=== PATIENT | female | born 1965 | race Caucasian/White ===

== ENCOUNTER 2022-10-17 13:27 | Emergency (ER) | payer OTHER, SELFPAY ==
[2022-10-17 13:28] VITALS: BP 165/91; PULSE 82; RESP 18; TEMP 36.7; O2SAT 100; BMI 25.8
--- NOTE | 2022-10-17 15:40 | EDS_ITS ---
HPI History of Present Illness Chief Complaint: Head Injury Informant: patient Onset/Context/Timing Onset: Yesterday Narrative Narrative: Patient presents secondary to closed head injury. She was getting into a truck yesterday when she hit the top of her head on the roof of the truck. She has small hematoma and headache. She states she does want to keep her eyes closed and sleep. She has had some nausea. She is been taking Tylenol without improvement. She takes a baby aspirin daily but no other form of anticoagulant. She denies neck pain. [facility] Medical History (Updated 10/17/22 @ 16:[address] Uzma Diaz MD) Anxiety Depression Diabetes High cholesterol Hypertension Home Medications aspirin 81 mg tablet,delayed release (Adult Low Dose Aspirin) 81 mg PO DAILY 10/17/22 [History Last Taken Unknown] atorvastatin 10 mg tablet 10 mg PO DAILY 10/17/22 [History Last Taken Unknown] buprenorphine HCl 150 mcg buccal film 150 mcg buccal Q12H 10/17/22 [History Last Taken Unknown] buspirone 15 mg tablet 15 mg PO BID 10/17/22 [History Last Taken Unknown] empagliflozin 25 mg tablet 25 mg PO DAILY 10/17/22 [History Last Taken Unknown] glimepiride 4 mg tablet (Amaryl) 4 mg PO DAILY 10/17/22 [History Last Taken Unknown] lamotrigine 200 mg tablet (Lamictal) 200 mg PO DAILY 10/17/22 [History Last Taken Unknown] lisinopril 10 mg tablet 10 mg PO DAILY 10/17/22 [History Last Taken Unknown] melatonin 3 mg tablet,extended release (Meladox) mg PO 10/17/22 [History Last Taken Unknown] meloxicam 15 mg tablet 15 mg PO DAILY 10/17/22 [History Last Taken Unknown] metFORMIN 1,500 mg PO .hs 10/17/22 [History Last Taken Unknown] metformin 500 mg 24 hr tablet,extended release (Glumetza) 1,000 mg PO DAILY 10/17/22 [History Last Taken Unknown] pioglitazone 30 mg tablet (Actos) 30 mg PO DAILY 10/17/22 [History Last Taken Unknown] prazosin 1 mg capsule (Minipress) 1 mg PO QHS 10/17/22 [History Last Taken Unknown] promethazine 25 mg tablet 25 mg PO TID PRN nausea and vomiting #14 tabs 10/17/22 [Rx Last Taken Unknown] sertraline 150 mg capsule 150 mg PO DAILY 10/17/22 [History Last Taken Unknown] Allergy/AdvReac Type Severity Reaction Status Date / Time haloperidol [From Haldol] Allergy Severe Hives Verified 10/17/22 13:30 clindamycin Allergy Intermediate Hives Verified 10/17/22 15:49 ondansetron [From Zofran] Allergy Intermediate Hives Verified 10/17/22 15:49 Social History Smoking Status: Current every day smoker tobacco type: cigarettes ROS ROS ED Constitutional Constitutional ED: Denies chills or fever(s) Eyes Eyes: Reports other Details: Difficulty keeping eyes open but no change in vision. ; Denies change in vision or discharge from eye(s) ENT ENT ED: Denies discharge from eye(s), rhinorrhea or sore throat Cardiovascular Cardiovascular: Denies chest pain or palpitations Respiratory/Chest Respiratory/Chest: Denies cough or dyspnea Gastrointestinal Gastrointestinal: Reports nausea and vomiting; Denies abdominal pain or diarrhea Genitourinary Genitourinary ED: Denies difficulty urinating or dysuria Musculoskeletal Musculoskeletal: Denies back pain or extremity pain Integumentary Denies Abrasions or rash Neurologic Neurologic: Reports headache(s); Denies weakness Allergic/Immunologic Allergic/Immunologic ED: Denies lip swelling or urticaria EXAM Physical Exam Const Vital Signs: 10/17/22 13:28 10/17/22 15:35 10/17/22 15:35 Temperature 98.1 F Temperature Source Temporal Pulse Rate 82 Respiratory Rate 18 Respiratory Effort Normal Respiratory Pattern Normal Blood Pressure 165/91 H Blood Pressure Mean 115 Pulse Ox 100 Oxygen Delivery Method Room Air Positive well nourished and well developed General Appearance ED: well developed HEENT Reports normocephalic and head/scalp atraumatic Eyes PERRL and EOMs intact bilaterally Neck supple Chest Wall inspection of chest normal and palpation of chest normal Resp normal respiratory effort and clear to auscultation bilaterally Cardio regular rate and regular rhythm GI normal to inspection, nondistended, normoactive bowel sounds Palpation: soft Back/Spine no CVA tenderness Back/Spine Narrative: No midline cervical tenderness. Extremity normal to inspection Neuro oriented x3 and no sensory deficits noted Sensorium / Orientation: alert Motor Exam: strength 5/5 throughout Psych mental status grossly normal Skin no rashes or lesions noted MDM MDM MDM Narrative Medical decision making narrative: CT scan of the head obtained to evaluate for intracranial injury/bleed. Radiography Diagnostic Testing: Clinical Impression(s) from Imaging Studies Brain CT 10/17/22 15:40 IMPRESSION: Negative head/brain CT without intravenous contrast. Electronically Signed: Florentino Hedrick MD at 16:37 EDT , Treatment and Re-Evaluation Narrative: CT scan of the head reveals no acute abnormalities. Patient given ibuprofen here. She has an allergy to Zofran and therefore is not given nausea meds since she is driving home. 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 She will continue to take Tylenol and ibuprofen at home as needed. She will be given instructions for concussion and return instructions were provided. Discharge Plan Triage Chief Complaint: Head Injury ED Provider: Uzma Diaz Dx/Rx/DC Orders Clinical Impression: Concussion, CHI (closed head injury) Instructions: ED Concussion, ED Head Injury (Adult) Prescriptions: New promethazine 25 mg tablet 25 mg PO TID PRN (Reason: nausea and vomiting) Qty: 14 0RF No Action aspirin [Adult Low Dose Aspirin] 81 mg tablet,delayed release (DR/EC) 81 mg PO DAILY atorvastatin 10 mg tablet 10 mg PO DAILY buprenorphine HCl 150 mcg film 150 mcg buccal Q12H buspirone 15 mg tablet 15 mg PO BID empagliflozin 25 mg tablet 25 mg PO DAILY glimepiride [Amaryl] 4 mg tablet 4 mg PO DAILY lamotrigine [Lamictal] 200 mg tablet 200 mg PO DAILY lisinopril 10 mg tablet 10 mg PO DAILY melatonin [Meladox] 3 mg tablet extended release PO meloxicam 15 mg tablet 15 mg PO DAILY metformin [Glumetza] 500 mg tablet,ER arnold.retention 24 hr 1,000 mg PO DAILY metFORMIN 1,500 mg PO .hs pioglitazone [Actos] 30 mg tablet 30 mg PO DAILY prazosin [Minipress] 1 mg capsule 1 mg PO QHS sertraline 150 mg capsule 150 mg PO DAILY Primary Care Provider: AMBAR MARKS NP Referrals: AMBAR MARKS NP [Other] - 1-2 Weeks Disposition Disposition: Home, Self Care
--- NOTE | 2022-10-17 15:40 | CT_ITS ---
EXAM: CT HEAD WITHOUT INTRAVENOUS CONTRAST CLINICAL INDICATION: CHI TECHNIQUE: Multiple axial images were obtained of the head without intravenous contrast. This CT exam was performed using one or more of the following dose reduction techniques: automated exposure control, adjustment of the mA and/or kV according to patient size, and/or use of iterative reconstruction technique. COMPARISON: No relevant prior studies available. FINDINGS: BRAIN AND EXTRA-AXIAL SPACES: Unremarkable. No intra- or extra-axial hemorrhage. No evidence of acute infarct. No intracranial mass or mass effect. There is preservation of the tabares/white matter interface. Posterior fossa structures are unremarkable. Ventricles are appropriate for age. No hydrocephalus. Basal cisterns are patent. BONES/JOINTS: Unremarkable. No discrete lytic or blastic abnormalities. SINUSES: Unremarkable as visualized. Clear. MASTOID AIR CELLS: Unremarkable. Clear. ORBITS: Visualized globes, extraocular muscles, optic nerves and retrobulbar fat appear unremarkable. CT/Brain/Head without Contrast IMPRESSION: Negative head/brain CT without intravenous contrast. Electronically Signed: Florentino Hedrick MD at 16:37 EDT ,
[2022-10-17] MEDS: Ibuprofen 600 MG Tablet PO (16:51)
== END 2022-10-17 16:54 | disposition home or self-care (01) ==
PROVIDERS: Emergency Provider Emergency Medicine; Visit Provider Emergency Medicine
DX: S06.0X0A Concussion without loss of consciousness, initial encounter (principal); E11.9 Type 2 diabetes mellitus without complications; E78.00 Pure hypercholesterolemia, unspecified; F17.210 Nicotine dependence, cigarettes, uncomplicated; I10 Essential (primary) hypertension; F32.A Depression, unspecified; F41.9 Anxiety disorder, unspecified; Z79.82 Long term (current) use of aspirin; Z79.899 Other long term (current) drug therapy; Z79.84 Long term (current) use of oral hypoglycemic drugs; X58.XXXA Exposure to other specified factors, initial encounter
CPT/HCPCS: 70450; 99283

== ENCOUNTER → 2022-11-03 | Outpatient (CLI) | payer OTHER, SELFPAY ==
--- NOTE | 2022-11-03 15:30 | BI_ITS ---
MAMMOGRAPHY - BILATERAL SCREENING REASON FOR EXAM: Female, 57 years old. Routine annual screening examination. PERTINENT HISTORY: Non-contributory. TECHNIQUE: Digital bilateral breast dinh (3D mammographic acquisition) in the CC and MLO projections. 2-D mediolateral oblique (MLO) and craniocaudad (CC) views of both breasts were obtained. CAD: Full Field Digital Mammography with Computer Added Detection was performed. COMPARISON: Comparison is made with prior outside examination dated November 02, 2020. FINDINGS: Breast Composition: The breasts are heterogeneously dense, which may obscure small masses. There are no dominant masses or suspicious calcifications. No other significant abnormalities are identified. There has been no significant change since the prior study. BI/SCRN MAMM (CAD)W/DINH BILAT IMPRESSION: Stable bilateral screening mammogram. Yearly follow-up mammogram recommended. (A) ASSESSMENT CATEGORY: BIRADS Category 1: Negative. A letter regarding these results will be sent to the patient by the facility within 30 days. Approximately 10% of breast cancers are not detected by mammography. A normal mammogram should not delay biopsy of a clinically suspicious abnormality. [id number] Electronically Signed: Yosvany Call MD at 9:53 EDT ,
== END | disposition home or self-care (01) ==
DX: Z12.31 Encounter for screening mammogram for malignant neoplasm of breast (principal)
CPT/HCPCS: 77063; 77067

== ENCOUNTER 2023-02-02 12:46 | Observation (INO) | payer OTHER, SELFPAY ==
[2023-02-02 12:47] VITALS: BP 127/78; PULSE 87; RESP 16; TEMP 35.9; O2SAT 100; BMI 26.2
--- NOTE | 2023-02-02 13:05 | ED.VIS.GI ---
HPI HPI - GI History of Present Illness Chief Complaint: Flank Pain Informant: patient Narrative Narrative: Patient presenting with right flank pain that feels like prior kidney stones, pain has been there for about a month. Yesterday the pain got worse she went to [place] and had a CT showing a 6 mm stone somewhere on the right side, she does not have the report or the imaging with her. She states her pain is out of control. She was prescribed ibuprofen and an antibiotic. She is not having hematuria, dysuria, fevers, chills, she is nauseated and vomiting. She is on Suboxone because of being on hydrocodone for a long time due to chronic low back issues, she states this was all a result of care provided at the [facility], she is referred there to see urology which she has not done yet, she came here because the pain is out of control. No prior surgeries for kidney stones. [facility] Medical History (Updated 02/02/23 @ 15:[address] Brandyn Adams MD) Anxiety Depression Diabetes High cholesterol Hypertension Kidney stones PTSD (post-traumatic stress disorder) Home Medications aspirin 81 mg tablet,delayed release (Adult Low Dose Aspirin) 81 mg PO DAILY 10/17/22 [History Last Taken Unknown] atorvastatin 10 mg tablet 10 mg PO DAILY 10/17/22 [History Last Taken Unknown] buprenorphine HCl 150 mcg buccal film 150 mcg buccal Q12H 10/17/22 [History Last Taken Unknown] buspirone 15 mg tablet 15 mg PO BID 10/17/22 [History Last Taken Unknown] empagliflozin 25 mg tablet 25 mg PO DAILY 10/17/22 [History Last Taken Unknown] glimepiride 4 mg tablet (Amaryl) 4 mg PO DAILY 10/17/22 [History Last Taken Unknown] lamotrigine 200 mg tablet (Lamictal) 200 mg PO DAILY 10/17/22 [History Last Taken Unknown] lisinopril 10 mg tablet 10 mg PO DAILY 10/17/22 [History Last Taken Unknown] melatonin 3 mg tablet,extended release (Meladox) mg PO 10/17/22 [History Last Taken Unknown] meloxicam 15 mg tablet 15 mg PO DAILY 10/17/22 [History Last Taken Unknown] metFORMIN 1,500 mg PO .hs 10/17/22 [History Last Taken Unknown] metformin 500 mg 24 hr tablet,extended release (gastric retention) (Glumetza) 1,000 mg PO DAILY 10/17/22 [History Last Taken Unknown] pioglitazone 30 mg tablet (Actos) 30 mg PO DAILY 10/17/22 [History Last Taken Unknown] prazosin 1 mg capsule (Minipress) 1 mg PO QHS 10/17/22 [History Last Taken Unknown] promethazine 25 mg tablet 25 mg PO TID PRN nausea and vomiting #14 tabs 10/17/22 [Rx Last Taken Unknown] sertraline 150 mg capsule 150 mg PO DAILY 10/17/22 [History Last Taken Unknown] Allergy/AdvReac Type Severity Reaction Status Date / Time haloperidol [From Haldol] Allergy Severe Hives Verified 10/17/22 13:30 clindamycin Allergy Intermediate Hives Verified 10/17/22 15:49 ondansetron [From Zofran] Allergy Intermediate Hives Verified 10/17/22 15:49 Social History household members: none housing: house Smoking Status: Current every day smoker tobacco type: cigarettes ROS ROS ED Constitutional Constitutional ED: Denies chills or fever(s) Eyes Eyes: Denies change in vision or diplopia ENT ENT ED: Denies rhinorrhea or sore throat Cardiovascular Cardiovascular: Denies chest pain or palpitations Respiratory/Chest Respiratory/Chest: Denies cough or dyspnea Gastrointestinal Gastrointestinal: Reports abdominal pain, nausea and vomiting; Denies diarrhea Genitourinary Genitourinary ED: Reports flank pain; Denies dysuria or hematuria Musculoskeletal Musculoskeletal: Reports back pain; Denies neck pain Integumentary Denies abscess or rash Neurologic Neurologic: Denies headache(s), paresthesias or weakness Psychiatric Psychiatric: Denies anxiety or suicidal thoughts EXAM Physical Exam Const Vital Signs: 02/02/23 12:47 Temperature 96.7 F L Temperature Source Temporal Pulse Rate 87 Respiratory Rate 16 Blood Pressure 127/78 H Blood Pressure Mean 94 Pulse Ox 100 Oxygen Delivery Method Room Air Positive well nourished and well developed Constitutional Narrative: In mild acute painful distress General Appearance ED: well developed HEENT Reports moist mucous membranes normocephalic and atraumatic Eyes PERRL and EOMs intact bilaterally Neck full ROM and supple Resp normal respiratory effort and clear to auscultation bilaterally Effort and Inspection: Negative for respiratory distress Cardio regular rate, regular rhythm and no murmurs GI non-distended GI Narrative: Mild tenderness throughout right abdomen no guarding or rebound Auscultation: normoactive bowel sounds Palpation: soft Back/Spine General Back: CVA tenderness right and other FROM Extremity normal to inspection General Extremety ED: Negative for edema, pulses abnormal or tenderness General Extremity: Negative for edema or pulses abnormal Neuro oriented x3, CN's II-XII intact bilaterally and no sensory deficits noted Sensorium / Orientation: awake and alert Motor Exam: strength 5/5 throughout Psych Attitude: agitated Mood & Affect: anxious Skin no rashes or lesions noted and no wounds MDM MDM MDM Narrative Medical decision making narrative: Labs obtained show creatinine 1.37 I do not have an old measurement for her to see a baseline. Her urinalysis shows no sign of infection right now, but she has been on an antibiotic recently. Blood counts are noted and good, she is feeling better after morphine. Discussed with urology for possible stenting; Dr. Anglin agrees and will admit her to the floor for further management. History & Record Review Additional record(s) reviewed:: Prior outpatient record (CT imaging without results sent digitally from outpatient hospital yesterday, on my interpretation proximal right ureteral 6 mm stone with hydronephrosis.) Lab Data Attestation: I reviewed the patient's lab results. Labs: Laboratory Results - last 24 hr 02/02/23 13:10 WBC 9.7 RBC 4.54 Hgb 12.6 Hct 39.4 MCV 86.8 MCH 27.8 MCHC 32.0 RDW Std Deviation 55.2 H RDW Coeff of Gabi 17.2 H Plt Count 293 MPV 9.3 Immature Gran % (Auto) 0.400 Neut % (Auto) 56.2 Lymph % (Auto) 32.3 Rab[place] % (Auto) 7.5 Eos % (Auto) 3.1 Baso % (Auto) 0.5 Absolute Neuts (auto) 5.4 Absolute Lymphs (auto) 3.12 Nucleated RBC % 0 Sodium 134 L Potassium 4.0 Chloride 102 Carbon Dioxide 25.0 Anion Gap 7 BUN 18 Creatinine 1.37 H Estim Creat Clear Calc 45.12 Est GFR (MDRD) Af Amer 51 L Est GFR (MDRD) Non-Af 43 L BUN/Creatinine Ratio 13.1 Glucose 204 H Calcium 9.3 Urine Color Yellow Urine Clarity Clear Urine pH 6.0 Ur Specific [place] 1.015 Urine Protein 15 H Urine Glucose (UA) 1000 H Urine Ketones Negative Urine Occult Blood 25 H Urine Nitrite Negative Urine Bilirubin Negative Urine Urobilinogen Normal Ur Leukocyte Esterase 25 H Urine RBC 0-5 SEEN Urine WBC 0-5 SEEN Ur Squamous Epith Cells 0-5 SEEN Urine Bacteria 0 SEEN Urine Mucus 0 SEEN Management Discussion w/another healthcare provider: [employer] (Urology [facility]) Discharge Plan Triage Chief Complaint: Flank Pain ED Provider: Brandyn Adams Dx/Rx/DC Orders Clinical Impression: Intractable pain, Ureterolithiasis, Renal colic on right side Prescriptions: No Action aspirin [Adult Low Dose Aspirin] 81 mg tablet,delayed release (DR/EC) 81 mg PO DAILY atorvastatin 10 mg tablet 10 mg PO DAILY buprenorphine HCl 150 mcg film 150 mcg buccal Q12H buspirone 15 mg tablet 15 mg PO BID empagliflozin 25 mg tablet 25 mg PO DAILY glimepiride [Amaryl] 4 mg tablet 4 mg PO DAILY lamotrigine [Lamictal] 200 mg tablet 200 mg PO DAILY lisinopril 10 mg tablet 10 mg PO DAILY melatonin [Meladox] 3 mg tablet extended release PO meloxicam 15 mg tablet 15 mg PO DAILY metformin [Glumetza] 500 mg tablet,ER arnold.retention 24 hr 1,000 mg PO DAILY metFORMIN 1,500 mg PO .hs pioglitazone [Actos] 30 mg tablet 30 mg PO DAILY prazosin [Minipress] 1 mg capsule 1 mg PO QHS sertraline 150 mg capsule 150 mg PO DAILY promethazine 25 mg tablet 25 mg PO TID PRN (Reason: nausea and vomiting) Qty: 14 0RF Primary Care Provider: [facility] [Primary [facility] Provider] - Disposition Disposition: Acute Care Hospital [facility]
[2023-02-02] MEDS: Metoclopramide 10 MG/2 ML Vial 5 MG IV (13:11)
[2023-02-02] MEDS: Morphine 4 MG/ML Syringe IV ×2 (13:11→18:40)
[2023-02-02 13:17] LABS: Bacteria 0 SEEN /hpf (None Seen); Mucous, Urine 0 SEEN /hpf (<or=2+)
[2023-02-02 13:23] LABS: Absolute Lymphocyte Count 3.12 X10^3/uL (0.83-4.51); Absolute Neutrophil Count 5.4 X10^3/uL (2.0-7.7); Basophil# 0.05 X10^3/uL; Basophil% 0.5 % (0-1); Eosinophils% 3.1 % (0-5); Hematocrit 39.4 % (37-47); Hemoglobin 12.6 g/dL (12.0-15.0); Lymphocyte # 3.12 X10^3/ul (0.83-4.51); Lymphocyte % 32.3 % (19-41); Mean Corpuscular Hgb 27.8 pg (27.0-32.0); Mean Corpuscular Volume 86.8 fL (81-99); Mean Platelet Vol. 9.3 fl (6.2-12.0); Monocyte# 0.73 X10^3/uL; Monocyte% 7.5 % (0-10); NRBC Flagged by Analyzer 0 % (0-5); Neutrophil # 5.43 X10^3/uL (2.7-7.7); Neutrophil % 56.2 % (47-70); Platelet Count 293 K/mm3 (150-450); RBC Distribution Width CV 17.2 % (11.6-14.6); RBC Distribution Width SD 55.2 fl (35.1-43.9); Red Blood Count 4.54 M/mm3 (4.2-5.4); White Blood Count 9.7 K/mm3 (4.4-11.0)
[2023-02-02 13:24] LABS: Color, Urine Yellow (Yellow); Glucose, Dipstick 1000 mg/dl (Normal); Ketone-Dipstick Negative (Negative); Leukocyte Esterase-Dipstick 25 /ul (Negative); Nitrite-Dipstick Negative (Negative); Occult Blood-Urine 25 /ul (Negative); Protein-Dipstick 15 mg/dl (Negative); Specific Gravity, Urine 1.015 (1.002-1.030); Urine Bilirubin Dipstick Negative (Negative); Urine Clarity Clear (Clear); Urine Urobilinogen Normal (Normal)
[2023-02-02 13:35] LABS: Red Blood Cells-Urine 0-5 SEEN /hpf (0-5); Squamous Epithelial Cells - UA 0-5 SEEN /hpf (5-10); White Blood Cells 0-5 SEEN /hpf (0-5)
[2023-02-02 13:50] LABS: Anion Gap 7 (5-15); BUN 18 mg/dL (7-18); BUN/Creat Ratio 13.1 RATIO (10-20); Calcium,Total 9.3 mg/dL (8.5-10.1); Chloride 102 mmol/L (98-107); Creatinine, Serum 1.37 mg/dL (0.55-1.02); EST Glomerular Filtration Rate 43 mL/min (>60); Est Glom Filt Rate - Afr Amer 51 mL/min (>60); Estimated Creatinine Clearance 45.12 ml/min; Glucose 204 mg/dL (74-106); Sodium Level 134 mmol/L (136-145)
--- NOTE | 2023-02-02 15:41 | NURSING ---
MED SURG BRETT INTRACTABLE KIDNEY STONE PAIN RT FLANK
[2023-02-02 17:00] VITALS: RESP 14; O2SAT 94
--- NOTE | 2023-02-02 17:39 | ED.RN ---
Pt observed ambulating back in to facility with IV holding bag of fluids. This RN advised pt she had to remain in ED unit as long as she had an IV. Pt states she was told by she could walk out to her car with IV infusing. This RN apologized for confusion but stated for safety reasons pt could not ambulate out into parking lot with IV fluids infusing. This RN tod pt if she needed to go outside, IV would need to be removed, pt voiced understanding. Per HALAL BUTCHER this was second time pt had left department with IV infusing, HALAL BUTCHER states pt had been reminded earlier that she could not go outside with IV infusing.
[2023-02-02] MEDS: 0.9% Normal Saline (1000mL) 1,000 ML 75 ML IV ×2 (18:55→20:09)
[2023-02-02 19:09] VITALS: BP 119/73; PULSE 74; RESP 14; O2SAT 95
[2023-02-02 19:48] VITALS: BMI 26.4
[2023-02-02 19:54] VITALS: BP 111/63; PULSE 61; RESP 18; TEMP 36.8; O2SAT 98
[2023-02-02] MEDS: Ketorolac 15 MG/ML Vial IV (20:13)
[2023-02-02 20:34] VITALS: BMI 26.4
[2023-02-02] MEDS: Nicotine Polacrilex 2 MG GUM PO (20:53)
[2023-02-03] VITALS (7 sets, daily range): BP systolic 103–161; BP diastolic 63–83; PULSE 55–86; RESP 14–16; TEMP 36.1–37.2; O2SAT 95–100
[2023-02-03] MEDS: Morphine 2 MG/ML Syringe IV ×2 (01:11→16:44)
[2023-02-03] MEDS: 0.9% Saline Lock 10 ML Syringe IV ×5 (01:11→16:52)
[2023-02-03] MEDS: Metoclopramide 10 MG/2 ML Vial 5 MG IV ×2 (03:12→16:52)
[2023-02-03 05:14] LABS: Absolute Lymphocyte Count 3.31 X10^3/uL (0.83-4.51); Absolute Neutrophil Count 3.9 X10^3/uL (2.0-7.7); Basophil# 0.06 X10^3/uL; Basophil% 0.7 % (0-1); Eosinophils% 3.6 % (0-5); Hematocrit 37.1 % (37-47); Hemoglobin 11.8 g/dL (12.0-15.0); Lymphocyte # 3.31 X10^3/ul (0.83-4.51); Lymphocyte % 40.1 % (19-41); Mean Corp Hgb Conc 31.8 g/dL (32-36); Mean Corpuscular Hgb 28.1 pg (27.0-32.0); Mean Corpuscular Volume 88.3 fL (81-99); Mean Platelet Vol. 9.3 fl (6.2-12.0); Monocyte# 0.64 X10^3/uL; Monocyte% 7.7 % (0-10); NRBC Flagged by Analyzer 0 % (0-5); Neutrophil # 3.93 X10^3/uL (2.7-7.7); Neutrophil % 47.7 % (47-70); Platelet Count 248 K/mm3 (150-450); RBC Distribution Width CV 17.2 % (11.6-14.6); RBC Distribution Width SD 56.5 fl (35.1-43.9); White Blood Count 8.3 K/mm3 (4.4-11.0)
[2023-02-03 05:40] LABS: Anion Gap 5 (5-15); BUN 18 mg/dL (7-18); BUN/Creat Ratio 15.7 RATIO (10-20); Calcium,Total 8.3 mg/dL (8.5-10.1); Chloride 107 mmol/L (98-107); Creatinine, Serum 1.15 mg/dL (0.55-1.02); EST Glomerular Filtration Rate 52 mL/min (>60); Est Glom Filt Rate - Afr Amer 63 mL/min (>60); Estimated Creatinine Clearance 53.75 ml/min; Glucose 145 mg/dL (74-106); Potassium 4.2 mmol/L (3.5-5.1); Sodium Level 139 mmol/L (136-145)
--- NOTE | 2023-02-03 05:45 | RAD_ITS ---
STUDY: X-RAY - ABDOMEN/PELVIS REASON FOR EXAM: Female, 57 years old patient with kidney stone. TECHNIQUE: Two AP supine views of the abdomen and pelvis. COMPARISON: Prior comparison studies are not available for review at this time. FINDINGS: Normal visualized lung bases. There is an unremarkable bowel gas pattern. There is no obvious organomegaly, mass, dilated bowel or pathologic calcifications. Normal soft tissue structures. There is narrowing of the L5-S1 disc space with endplate osteophytes. RAD/Abdomen Single View (Portable) IMPRESSION: No radiographic evidence of acute intra-abdominal disease. Electronically Signed: Aretha Pires MD at 7:01 EST ,
[2023-02-03] MEDS: Ketorolac 15 MG/ML Vial IV (09:09)
[2023-02-03] MEDS: 0.9% Normal Saline (1000mL) 1,000 ML 75 ML IV (09:09)
[2023-02-03] MEDS: Nicotine Polacrilex 2 MG GUM PO ×3 (09:20→16:45)
[2023-02-03 09:40] LABS: Bedside Glucose 179 mg/dL (74-106)
--- NOTE | 2023-02-03 14:36 | PCM.HP.STD ---
HPI - General General Date of Admission: 02/02/23 Date of Service: 02/03/23 Chief Complaint: Right ureteral calculi HPI Narrative SONNY AMBROSE, is a 57 F who presents to the hospital with severe right flank pain she was admitted for pain control today take her to surgery for right ESWL hopefully we will have to put a stent on the right side. And should be discharged after the treatment of her stone [facility] Medical History (Updated 02/02/23 @ 20:41 by Sachi Rodríguez) Anxiety Back pain due to injury Chest pain Depression Diabetes High cholesterol High cholesterol History of stress test Hypertension Kidney stones Post-menopausal PTSD (post-traumatic stress disorder) Syncope Home Medications aspirin 81 mg tablet,delayed release (Adult Low Dose Aspirin) 81 mg PO DAILY 10/17/22 [History Last Taken Unknown] buspirone 15 mg tablet 15 mg PO TID 10/17/22 [History Last Taken Unknown] empagliflozin 25 mg tablet 25 mg PO DAILY 10/17/22 [History Last Taken Unknown] lamotrigine 200 mg tablet (Lamictal) 200 mg PO DAILY 10/17/22 [History Last Taken Unknown] melatonin 3 mg tablet,extended release (Meladox) 3 mg PO BID 10/17/22 [History Last Taken Unknown] meloxicam 15 mg tablet 15 mg PO DAILY 10/17/22 [History Last Taken Unknown] promethazine 25 mg tablet 25 mg PO TID PRN nausea and vomiting #14 tabs 10/17/22 [Rx Last Taken Unknown] atorvastatin 20 mg tablet 20 mg PO DAILY 02/02/23 [History Last Taken Unknown] buprenorphine HCl 75 mcg buccal film 75 mcg buccal Q12H 02/02/23 [History Last Taken Unknown] lisinopril 20 mg tablet 20 mg PO DAILY 02/02/23 [History Last Taken Unknown] metformin 500 mg tablet 500 mg PO BID 02/02/23 [History Last Taken Unknown] pioglitazone 45 mg tablet 45 mg PO DAILY 02/02/23 [History Last Taken Unknown] sertraline 50 mg tablet 50 mg PO TID 02/02/23 [History Last Taken Unknown] Allergy/AdvReac Type Severity Reaction Status Date / Time haloperidol [From Haldol] Allergy Severe Hives Verified 10/17/22 13:30 clindamycin Allergy Intermediate Hives Verified 10/17/22 15:49 ondansetron [From Zofran] Allergy Intermediate Hives Verified 10/17/22 15:49 Social History household members: none housing: house Smoking Status: Current every day smoker tobacco type: cigarettes Vital Signs Vital Signs Vital Signs: 02/02/23 17:00 02/02/23 19:09 02/02/23 19:09 Temperature Temperature Source Pulse Rate 74 74 Pulse Strength Respiratory Rate 14 14 14 Respiratory Effort Blood Pressure 119/73 119/73 Blood Pressure Mean 88 88 Blood Pressure Source Blood Pressure Position Blood Pressure Location Pulse Ox 94 95 95 Oxygen Delivery Method Room Air Room Air 02/02/23 19:54 02/03/23 03:17 02/03/23 09:00 Temperature 98.3 F 98.4 F Temperature Source Oral Oral Pulse Rate 61 55 L Pulse Strength Respiratory Rate 18 16 Respiratory Effort Normal Blood Pressure 111/63 132/63 H Blood Pressure Mean 79 86 Blood Pressure Source Monitor Monitor Blood Pressure Position Semi-Fowlers Semi-Fowlers Blood Pressure Location Left Arm Right Arm Pulse Ox 98 100 Oxygen Delivery Method Room Air Room Air Room Air 02/03/23 09:20 02/03/23 09:20 Temperature 99.0 F Temperature Source Oral Pulse Rate 64 Pulse Strength Normal (2+) Respiratory Rate 14 Respiratory Effort Blood Pressure 126/66 H Blood Pressure Mean 86 Blood Pressure Source Monitor Blood Pressure Position Semi-Fowlers Blood Pressure Location Left Arm Pulse Ox 100 Oxygen Delivery Method Room Air Weight Weight: 76.385 kg Body Mass Index (BMI) 26.4 Results Lab / Micro Data 02/03/23 04:45 02/03/23 04:45 Labs: Laboratory Results - last 24 hr 02/03/23 04:45: WBC 8.3, RBC 4.20, Hgb 11.8 L, Hct 37.1, MCV 88.3, MCH 28.1, MCHC 31.8 L, RDW Std Deviation 56.5 H, RDW Coeff of Gabi 17.2 H, Plt Count 248, MPV 9.3, Immature Gran % (Auto) 0.200, Neut % (Auto) 47.7, Lymph % (Auto) 40.1, [place] % (Auto) 7.7, Eos % (Auto) 3.6, Baso % (Auto) 0.7, Absolute Neuts (auto) 3.9, Absolute Lymphs (auto) 3.31, Nucleated RBC % 0, Sodium 139, Potassium 4.2, Chloride 107, Carbon Dioxide 27.0, Anion Gap 5, BUN 18, Creatinine 1.15 H, Estim Creat Clear Calc 53.75, Est GFR (MDRD) Af Amer 63, Est GFR (MDRD) Non-Af 52 L, BUN/Creatinine Ratio 15.7, Glucose 145 H, Hemoglobin A1c 9.0 H, Calcium 8.3 L 02/03/23 09:15: POC Glucose 179 H Imagaing Radiology Impression KUB X-Ray 02/03/23 05:45 IMPRESSION: No radiographic evidence of acute intra-abdominal disease. Electronically Signed: Aretha Pires MD at 7:01 EST ,
--- NOTE | 2023-02-03 14:40 | PCM.DC ---
Discharge Instructions Diet Discharge Diet: No restrictions Activity Discharge Activity: Return to Normal Activity and May Not Drive (while taking narcotic pain medications.) Dressing / Incision Call your doctor if you observe: Fever of 101 or Higher Follow Up Care Please Follow Up With: David Anglin MD When: Call [phone] for an appointment Test Results: Test results from this visit will be discussed in further detail at your follow-up appointment, if applicable. Discharge Plan Admission Admit Date/Time: 02/02/23 16:03 Primary Reason for Your Visit: right kidney stone Attending Provider: David Anglin Primary Care Provider: [facility] Discharge Orders/Prescriptions Prescriptions: New ketorolac 10 mg tablet 10 mg PO Q6H PRN (Reason: pain) 5 Days Qty: 10 0RF tamsulosin 0.4 mg capsule 0.4 mg PO DAILY Qty: 30 0RF docusate sodium [Colace] 100 mg capsule 100 mg PO BID Qty: 20 0RF Continued aspirin [Adult Low Dose Aspirin] 81 mg tablet,delayed release (DR/EC) 81 mg PO DAILY Patient Comments: Patient states that she does not take it every day buspirone 15 mg tablet 15 mg PO TID empagliflozin 25 mg tablet 25 mg PO DAILY Rx Instructions: take 1/2 tablet 12.5 once a day lamotrigine [Lamictal] 200 mg tablet 200 mg PO DAILY melatonin [Meladox] 3 mg tablet extended release 3 mg PO BID meloxicam 15 mg tablet 15 mg PO DAILY promethazine 25 mg tablet 25 mg PO TID PRN (Reason: nausea and vomiting) Qty: 14 0RF atorvastatin 20 mg tablet 20 mg PO DAILY buprenorphine HCl 75 mcg film 75 mcg buccal Q12H lisinopril 20 mg tablet 20 mg PO DAILY metformin 500 mg tablet 500 mg PO BID pioglitazone 45 mg tablet 45 mg PO DAILY sertraline 50 mg tablet 50 mg PO TID Patient Comments: TAKE 3 TABLETS BY MOUTH ONCE DAILY Referrals / Follow [facility]: [facility] [Primary Care Provider] - Disposition Discharge Orders: Discharge Patient (Routine); Ordered 02/03/23 Ordered By: Dr. David Anglin
[2023-02-03 14:43] LABS: Bedside Glucose 134 mg/dL (74-106)
[2023-02-03] MEDS: Cefazolin 2 GM in 0.9% Normal Saline (100mL Bag) 100 ML IV (14:58)
--- NOTE | 2023-02-03 15:36 | OP.PCM_ITS ---
Report of Operation Date of Procedure: 02/03/23 Pre-Operative Diagnosis: right ureteral calculi Post-Operative Diagnosis: same Surgery/Procedure Performed:: Right ESWL Description of Surgical Findings:: Patient presents to the hospital for treatment of a kidney stone with shockwave lithotripsy. In the preoperative area and x-ray was done to confirm the location of the stone. The x-ray was reviewed and the stone location was reviewed. In the preoperative setting I spoke with the patient regarding the treatment of the stone how the treatment would be conducted and the expectations after surgery. The patient understands there is a risk of bleeding and infection. Also discussed the very rare risk of hematoma or damage to the kidney. We also discussed the risk that the shockwave machine will fail to break the stone adequately and that the patient may need other surgical procedures. We also discussed the possibility that the patient may need a stent after the procedure. After reviewing the procedure with the patient, the kassy ent is signed the consent form all the patient's questions were addressed and was taken back to the operating room for treatment of a kidney stone. Patient was taken back to the operating room, patient was identified by the nursing staff, we identified the side of the treatment and the patient side of treatment had been marked by my initials. The patient underwent general anesthetic and was placed supine on the lithotripter table. We then used fluoroscopy to identify the stone on the Right side mid ureter. We then positioned the patient under the lithotripter and we used triangulation tech nique to identify the location of the stone and then we made sure that the stone was engaged in the F2 focal point of F2 Donier lithoprior machine. Once the patient was positioned appropriately and the stone was identified and placed in the F2 focal point of the lithotripter machine we then proceeded with shockwave lithotripsy. In the beginning the shockwave was delivered at a rate of 90 shocks per minute, we monitor the EKG for any ectopy. The power was slowly increased to 5 kV and subsequently at the 7 kV. We then proceeded with the treatment we move the therapy had around during the treatment to make sure the stone stayed in the F2 focal point during the entire treatment and after 4000 shockwaves were delivered to the stone under fluoroscopic guidance the treatment was completed. The patient was given instructions to call the office to make an a follow-up appointment with an xray to evaluate the success of the treatment, patient understands that its possible the stones may need another procedure.At this point the patient's anesthetic was reversed patient was extubated and taken back to the PACU in stable condition. Surgeon: David Anglin Type of Anesthesia: General Drains: none Estimated Blood Loss (mL): 0 Admit VTE Documentation VTE Present on Admission: No VTE Mechan Device Prophylaxis: SCD's VTE Pharm Prophylaxis ordered?: No
[2023-02-03 16:22] LABS: Bedside Glucose 116 mg/dL (74-106)
== END 2023-02-03 18:29 | disposition home or self-care (01) ==
LOC: ED 15:38 → MS3 17:12
PROVIDERS: Admitting Provider Urology; Emergency Provider Emergency Medicine; Visit Provider Urology
PROC: (CPT 50590; principal; 2023-02-03 15:20)
DX: N13.2 Hydronephrosis with renal and ureteral calculous obstruction (principal); E11.9 Type 2 diabetes mellitus without complications; E78.00 Pure hypercholesterolemia, unspecified; Z79.82 Long term (current) use of aspirin; F43.10 Post-traumatic stress disorder, unspecified; I10 Essential (primary) hypertension; F17.210 Nicotine dependence, cigarettes, uncomplicated; Z79.899 Other long term (current) drug therapy; Z79.84 Long term (current) use of oral hypoglycemic drugs
CPT/HCPCS: 00873; 36415; 74018; 80048; 81001; 82962; 83036; 85025; 93005; 96361; 96374; 96375; 96376; 99221; 99283; J7030; A4216; G0378

== ENCOUNTER 2023-07-05 08:21 | Inpatient (IN) | payer OTHER, SELFPAY ==
[2023-07-05] VITALS (7 sets, daily range): BP systolic 101–126; BP diastolic 46–78; PULSE 63–102; RESP 12–16; TEMP 36.4–36.9; O2SAT 95–99; BMI 25.2
--- NOTE | 2023-07-05 08:38 | EKG12_ITS ---
Test Reason : GENERAL Blood Pressure : / mmHG Vent. Rate : 076 BPM Atrial Rate : 076 BPM P-R Int : 144 ms QRS Dur : 102 ms QT Int : 390 ms P-R-T Axes : 067 020 052 degrees QTc Int : 438 ms Normal sinus rhythm Possible Left atrial enlargement Incomplete right bundle branch block Borderline ECG Confirmed by RALPH WOODARD, ALMA ([id number]), industrial editor NORMA SAMAYOA ([id number]) on 07/10/2023 7:42:44 AM Referred By: Confirmed By:ALMA ROSAS MD
--- NOTE | 2023-07-05 08:39 | CT_ITS ---
STUDY: CT ABDOMEN AND PELVIS WITHOUT CONTRAST REASON FOR EXAM: Female, 57 years old. Right flank pain, RLQ pain RADIATION DOSAGE (If Supplied By Facility): CTDIvol = ( 8.80 ) mGy, DLP = ( 428.93 ) mGycm TECHNIQUE: Transaxial images were obtained from the dome of the diaphragm to the symphysis pubis without oral contrast, and without intravenous contrast. Sagittal and coronal images were reconstructed. Individualized dose optimization techniques were used for this CT. COMPARISON: None. FINDINGS: Findings suggestive of scarring along the anterior medial aspect of the right middle lobe and lingular segment of the left upper lobe. The visualized portions of the heart are within normal limits. 6.7 mm cyst in the dome of the right lobe of liver adjacent to the right hemidiaphragm. Proximal sludge in the gallbladder lumen. Normal spleen. Normal pancreas. Normal bilateral adrenal glands. There is a 8.1 mm calculus in the lower pole calyx of the right kidney. There is also evidence of a 5.3 mm calculus in the lower pole calyx of the right kidney. Punctate calculus in the upper pole calyx of the right kidney. 2 mm calculus in the anterior upper pole calyx of the left kidney. 2.4 mm calculus in the lower pole calyx of the left kidney as well as a 5.5 mm calculus in the lower pole calyx of the left kidney. Normal visualized stomach. Normal small intestine. Normal colon. The appendix is visualized and appears normal. There is scattered atherosclerotic calcification of the abdominal aorta, without a demonstrated aneurysm. Normal inferior vena cava. Normal retroperitoneum. Normal urinary bladder. Normal abdominal wall. There are diffuse degenerative changes of the visualized lumbar spine. CT/Abdomen/Pelvis without Cont IMPRESSION: Nonobstructive bilateral intrarenal calculi. No obstructive uropathy is seen. Electronically Signed: Yosvany Call MD at 9:21 EDT ,
--- NOTE | 2023-07-05 08:41 | EX.ED.DYSGE1 ---
HPI History of Present Illness Chief Complaint: General Illness Informant: patient Onset/Context/Timing Onset: Today Narrative Narrative: 57-year-old female presenting with lightheadedness. Patient states she was in the sun on Monday and feels that she got too much sun exposure. She has been dizzy and lightheaded. She has not passed out. She denies chest pain or shortness of breath. She has had vomiting and diarrhea today. Denies blood in her stool or emesis. Denies fever. She complains of right-sided flank pain with history of kidney stones. She denies headache. Denies sick contacts. Prior similar symptoms: Yes Recent Illness/Hospitalization: No PFSH PFSH Medical History Anxiety Back pain due to injury Chest pain Depression Diabetes High cholesterol High cholesterol History of stress test Hypertension Kidney stones Post-menopausal PTSD (post-traumatic stress disorder) Syncope Home Medications buspirone 15 mg tablet 15 mg PO TID 10/17/22 [History Last Taken Unknown] empagliflozin 25 mg tablet 25 mg PO DAILY 10/17/22 [History Last Taken Unknown] lamotrigine 200 mg tablet (Lamictal) 200 mg PO DAILY 10/17/22 [History Last Taken Unknown] melatonin 3 mg tablet,extended release (Meladox) 3 mg PO BID 10/17/22 [History Last Taken Unknown] meloxicam 15 mg tablet 15 mg PO DAILY 10/17/22 [History Last Taken Unknown] promethazine 25 mg tablet 25 mg PO TID PRN nausea and vomiting #14 tabs 10/17/22 [Rx Last Taken Unknown] atorvastatin 20 mg tablet 20 mg PO DAILY 02/02/23 [History Last Taken Unknown] buprenorphine HCl 75 mcg buccal film 75 mcg buccal Q12H 02/02/23 [History Last Taken Unknown] lisinopril 20 mg tablet 20 mg PO DAILY 02/02/23 [History Last Taken Unknown] metformin 500 mg tablet 500 mg PO BID 02/02/23 [History Last Taken Unknown] pioglitazone 45 mg tablet 45 mg PO DAILY 02/02/23 [History Last Taken Unknown] sertraline 50 mg tablet 50 mg PO TID 02/02/23 [History Last Taken Unknown] ketorolac 10 mg tablet 10 mg PO Q6H PRN pain 5 days #10 tabs 02/03/23 [Rx Last Taken Unknown] Allergy/AdvReac Type Severity Reaction Status Date / Time haloperidol [From Haldol] Allergy Severe Hives Verified 07/05/23 08:22 clindamycin Allergy Intermediate Hives Verified 07/05/23 08:22 ondansetron [From Zofran] Allergy Intermediate Hives Verified 07/05/23 08:22 Family History no significant family his no significant family history Social History household members: none housing: house Smoking Status: Current every day smoker tobacco type: cigarettes ROS ROS ED Constitutional Constitutional ED: Denies fever(s) Eyes Eyes: Denies blurry vision or change in vision ENT ENT ED: Denies rhinorrhea or sore throat Cardiovascular Cardiovascular: Denies chest pain Respiratory/Chest Respiratory/Chest: Denies cough or dyspnea Gastrointestinal Gastrointestinal: Reports abdominal pain, diarrhea, nausea and vomiting Genitourinary Genitourinary ED: Denies dysuria Musculoskeletal Musculoskeletal: Denies myalgias Integumentary Denies rash Neurologic Neurologic: Denies headache(s) Psychiatric Psychiatric: Denies suicidal thoughts EXAM Physical Exam Const Vital Signs: 07/05/23 08:21 07/05/23 08:21 Temperature 97.6 F L Temperature Source Temporal Pulse Rate 102 H Respiratory Rate 16 Respiratory Effort Normal Respiratory Pattern Normal Blood Pressure 126/65 H Blood Pressure Mean 85 Pulse Ox 97 Oxygen Delivery Method Room Air Positive well nourished and well developed General Appearance ED: well developed HEENT Reports normocephalic and head/scalp atraumatic Eyes PERRL and EOMs intact bilaterally Neck supple General: Negative for tenderness Chest Wall inspection of chest normal Resp normal respiratory effort and clear to auscultation bilaterally Cardio regular rhythm Rate: tachycardic GI non-tender and non-distended GI Narrative: Mild right lower quadrant tenderness Palpation: soft; Negative for guarding or rebound tenderness present no CVA tenderness Extremity normal to inspection Neuro oriented x3 Sensorium / Orientation: alert Motor Exam: strength 5/5 throughout Psych mental status grossly normal Skin no rashes or lesions noted MDM MDM MDM Narrative Medical decision making narrative: Patient is given IV fluids, Reglan. Differential diagnosis includes dehydration, viral illness, vasovagal response, urolithiasis. EKG is normal sinus rhythm rate of 76 with no acute ischemic changes, similar to previous. CBC unremarkable, normal white count. Urinalysis 0 white blood cells, 5-10 red blood cells, negative nitrite. Chemistries show sodium 128, BUN 32, creatinine 2.08, previous 1.15. Glucose 460. Patient was given additional IV fluids and subcutaneous insulin. Troponin is negative. CT abdomen pelvis shows nonobstructive bilateral intrarenal calculi. No obstructive uropathy is seen. Patient continues to feel lightheaded. Discussed with hospitalist for observation. History & Record Review Discussion w/independent historian: Patient Additional record(s) reviewed:: Prior labs Lab Data Attestation: I reviewed the patient's lab results. Labs: Laboratory Results - last 24 hr 07/05/23 08:55 WBC 10.1 RBC 4.48 Hgb 13.1 Hct 39.4 MCV 87.9 MCH 29.2 MCHC 33.2 RDW Std Deviation 45.7 H RDW Coeff of Gabi 14.3 Plt Count 285 MPV 9.8 Immature Gran % (Auto) 0.500 Neut % (Auto) 74.5 H Lymph % (Auto) 19.0 [place] % (Auto) 5.0 Eos % (Auto) 0.6 Baso % (Auto) 0.4 Absolute Neuts (auto) 7.6 Absolute Lymphs (auto) 1.92 Nucleated RBC % 0 Sodium 128 L Potassium 3.9 Chloride 95 L Carbon Dioxide 24.0 Anion Gap 9 BUN 32 H Creatinine 2.08 H Estim Creat Clear Calc 29.72 Est GFR (MDRD) Af Amer 32 L Est GFR (MDRD) Non-Af 26 L BUN/Creatinine Ratio 15.4 Glucose 460 H* Calcium 10.5 H Total Bilirubin 0.50 AST 20 ALT 29 Alkaline Phosphatase 124 H Troponin I High Sens 4 Total Protein 7.2 Albumin 3.8 Globulin 3.4 Albumin/Globulin Ratio 1.1 Lipase 23 Urine Color Yellow Urine Clarity Clear Urine pH 5.0 Ur Specific [place] 1.010 Urine Protein 15 H Urine Glucose (UA) 1000 H Urine Ketones Negative Urine Occult Blood 150 H Urine Nitrite Negative Urine Bilirubin Negative Urine Urobilinogen Normal Ur Leukocyte Esterase Negative Urine RBC 5-10 SEEN Urine WBC 0 SEEN Ur Squamous Epith Cells 0-5 SEEN Urine Bacteria 0 SEEN Urine Mucus 0 SEEN Radiography Diagnostic Testing: Clinical Impression(s) from Imaging Studies Abdomen/Pelvis CT 07/05/23 08:39 IMPRESSION: Nonobstructive bilateral intrarenal calculi. No obstructive uropathy is seen. Electronically Signed: Yosvany Call MD at 9:21 EDT , EKG Initial EKG: Attestation: I personally reviewed and interpreted this EKG as follows: Interpretation: Sinus Rhythm Comments: Incomplete right bundle branch block Prior: Unchanged Discharge Plan Triage Chief Complaint: General Illness ED Provider: Charo Atkinson Dx/Rx/DC Orders Clinical Impression: STEFANIE (acute kidney injury), Hyperglycemia, Near syncope, Dehydration Prescriptions: No Action aspirin [Adult Low Dose Aspirin] 81 mg tablet,delayed release (DR/EC) 81 mg PO DAILY Patient Comments: Patient states that she does not take it every day buspirone 15 mg tablet 15 mg PO TID empagliflozin 25 mg tablet 25 mg PO DAILY Rx Instructions: take 1/2 tablet 12.5 once a day lamotrigine [Lamictal] 200 mg tablet 200 mg PO DAILY melatonin [Meladox] 3 mg tablet extended release 3 mg PO BID meloxicam 15 mg tablet 15 mg PO DAILY promethazine 25 mg tablet 25 mg PO TID PRN (Reason: nausea and vomiting) Qty: 14 0RF atorvastatin 20 mg tablet 20 mg PO DAILY buprenorphine HCl 75 mcg film 75 mcg buccal Q12H lisinopril 20 mg tablet 20 mg PO DAILY metformin 500 mg tablet 500 mg PO BID pioglitazone 45 mg tablet 45 mg PO DAILY sertraline 50 mg tablet 50 mg PO TID Patient Comments: TAKE 3 TABLETS BY MOUTH ONCE DAILY ketorolac 10 mg tablet 10 mg PO Q6H PRN (Reason: pain) 5 Days Qty: 10 0RF tamsulosin 0.4 mg capsule 0.4 mg PO DAILY Qty: 30 0RF docusate sodium [Colace] 100 mg capsule 100 mg PO BID Qty: 20 0RF [facility] [facility] [facility] [[facility] [place]] - Disposition Disposition: Acute Care Hospital [facility]
[2023-07-05] MEDS: 0.9% Normal Saline (1000mL) 1,000 ML 1000 ML IV ×2 (08:51→09:51)
[2023-07-05] MEDS: Metoclopramide 10 MG/2 ML Vial IV (08:51)
[2023-07-05 09:03] LABS: Bacteria 0 SEEN /hpf (None Seen); Mucous, Urine 0 SEEN /hpf (<or=2+); White Blood Cells 0 SEEN /hpf (0-5)
[2023-07-05 09:09] LABS: Color, Urine Yellow (Yellow); Glucose, Dipstick 1000 mg/dl (Normal); Ketone-Dipstick Negative (Negative); Leukocyte Esterase-Dipstick Negative /ul (Negative); Nitrite-Dipstick Negative (Negative); Occult Blood-Urine 150 /ul (Negative); Protein-Dipstick 15 mg/dl (Negative); Urine Bilirubin Dipstick Negative (Negative); Urine Clarity Clear (Clear); Urine Urobilinogen Normal (Normal)
[2023-07-05 09:11] LABS: Absolute Lymphocyte Count 1.92 X10^3/uL (0.83-4.51); Absolute Neutrophil Count 7.6 X10^3/uL (2.0-7.7); Basophil# 0.04 X10^3/uL; Basophil% 0.4 % (0-1); Eosinophil# 0.06 X10^3/uL; Eosinophils% 0.6 % (0-5); Hematocrit 39.4 % (37-47); Hemoglobin 13.1 g/dL (12.0-15.0); Lymphocyte # 1.92 X10^3/ul (0.83-4.51); Mean Corp Hgb Conc 33.2 g/dL (32-36); Mean Corpuscular Hgb 29.2 pg (27.0-32.0); Mean Corpuscular Volume 87.9 fL (81-99); Mean Platelet Vol. 9.8 fl (6.2-12.0); Monocyte# 0.51 X10^3/uL; NRBC Flagged by Analyzer 0 % (0-5); Neutrophil # 7.55 X10^3/uL (2.7-7.7); Neutrophil % 74.5 % (47-70); Platelet Count 285 K/mm3 (150-450); RBC Distribution Width CV 14.3 % (11.6-14.6); RBC Distribution Width SD 45.7 fl (35.1-43.9); Red Blood Count 4.48 M/mm3 (4.2-5.4); White Blood Count 10.1 K/mm3 (4.4-11.0)
[2023-07-05 09:21] LABS: Red Blood Cells-Urine 5-10 SEEN /hpf (0-5); Squamous Epithelial Cells - UA 0-5 SEEN /hpf (5-10)
[2023-07-05 09:33] LABS: ALB/GLOB Ratio 1.1 RATIO (0.9-2.4); AST(SGOT) 20 U/L (15-37); Alanine Aminotransfer ALT/SGPT 29 U/L (13-56); Albumin, Serum 3.8 g/dL (3.2-5.0); Alkaline Phosphatase 124 U/L (45-117); Anion Gap 9 (5-15); BUN 32 mg/dL (7-18); BUN/Creat Ratio 15.4 RATIO (10-20); Calcium,Total 10.5 mg/dL (8.5-10.1); Chloride 95 mmol/L (98-107); Creatinine, Serum 2.08 mg/dL (0.55-1.02); EST Glomerular Filtration Rate 26 mL/min (>60); Est Glom Filt Rate - Afr Amer 32 mL/min (>60); Estimated Creatinine Clearance 29.72 ml/min; Globulin 3.4 g/dL (2.2-4.2); Glucose 460 mg/dL (74-106); Lipase 23 U/L (13-75); Potassium 3.9 mmol/L (3.5-5.1); Protein, Total 7.2 g/dL (6.4-8.2); Sodium Level 128 mmol/L (136-145); Troponin-I HS (w/2H Reflex) 4 pg/mL (3.0-54.0)
[2023-07-05] MEDS: Insulin Lispro 100 UNIT/ML INSULN.PEN 10 UNIT SC (09:51)
--- NOTE | 2023-07-05 09:58 | HP.PCM.HOS_ITS ---
[facility] - General General Date of Admission: 07/05/23 Date of Service: 07/05/23 Chief Complaint: Dizziness and lightheadedness for couple days. Right-sided flank pain. Feels exhausted HPI Narrative SONNY AMBROSE, is a 57 F came to ED for dizziness and lightheadedness for 2 days. She was not under the sun on past Monday after that she feels dizzy lightheaded, exhausted. Did not had syncopal episode. No chest pain shortness of breath or palpitation. As per ED physician she had vomiting and diarrhea but to me she denies vomiting or diarrhea. She is feeling nauseated. Complain of right-sided flank pain for about 1 week. She describes as right lumbar pain with radiation to right lower quadrant intermittently 4-6/10 and states it may be from passing kidney stone. She has history of kidney stone and had cystoscopy and lithotripsy for right total calculi on 02/03/[address] Anglin. She denies burning micturition, hematuria or purulent discharge per urethra. Overall she feels dehydrated. Patient blood pressure was also low at home. She is on lisinopril at home. Patient was found to have STEFANIE given 1 L IV fluid normal saline further admitted. [facility]LY [facility] Medical History Anxiety Back pain due to injury Chest pain Depression Diabetes High cholesterol High cholesterol History of stress test Hypertension Kidney stones Post-menopausal PTSD (post-traumatic stress disorder) Syncope Home Medications buspirone 15 mg tablet 15 mg PO TID 10/17/22 [History Last Taken Unknown] empagliflozin 25 mg tablet 25 mg PO DAILY 10/17/22 [History Last Taken Unknown] lamotrigine 200 mg tablet (Lamictal) 200 mg PO DAILY 10/17/22 [History Last Taken Unknown] melatonin 3 mg tablet,extended release (Meladox) 3 mg PO BID 10/17/22 [History Last Taken Unknown] meloxicam 15 mg tablet 15 mg PO DAILY 10/17/22 [History Last Taken Unknown] promethazine 25 mg tablet 25 mg PO TID PRN nausea and vomiting #14 tabs 10/17/22 [Rx Last Taken Unknown] atorvastatin 20 mg tablet 20 mg PO DAILY 02/02/23 [History Last Taken Unknown] buprenorphine HCl 75 mcg buccal film 75 mcg buccal Q12H 02/02/23 [History Last Taken Unknown] lisinopril 20 mg tablet 20 mg PO DAILY 02/02/23 [History Last Taken Unknown] metformin 500 mg tablet 500 mg PO BID 02/02/23 [History Last Taken Unknown] pioglitazone 45 mg tablet 45 mg PO DAILY 02/02/23 [History Last Taken Unknown] sertraline 50 mg tablet 50 mg PO TID 02/02/23 [History Last Taken Unknown] ketorolac 10 mg tablet 10 mg PO Q6H PRN pain 5 days #10 tabs 02/03/23 [Rx Last Taken Unknown] Allergy/AdvReac Type Severity Reaction Status Date / Time haloperidol [From Haldol] Allergy Severe Hives Verified 07/05/23 08:22 clindamycin Allergy Intermediate Hives Verified 07/05/23 08:22 ondansetron [From Zofran] Allergy Intermediate Hives Verified 07/05/23 08:22 Family History no significant family his Social History household members: none housing: house Smoking Status: Current every day smoker tobacco type: cigarettes ROS ROS Narrative Constitutional: Reports fatigue and weakness. No fever. HEENT: Denies vertigo. Reports systems reviewed and no addt'l complaints, except as documented Respiratory/Chest: No acute shortness of breath or respiratory distress or wheezing. CVS: No chest pain or shortness of breath. As described in HPI. Gastrointestinal: Nausea. Vomiting. Denies coffee ground emesis, hematemesis or melena Genitourinary: Denies burning urination. As described in HPI Musculoskeletal: Denies acute joint pain or limited range of motion. No acute injury Neurologic: Denies seizure-like symptoms. skin: No ulcer. No rash Endocrinology: Reports systems reviewed and no addt'l complaints, except as documented Hematologic/Lymphatic: Reports systems reviewed and no addt'l complaints, except as documented Rest 14 ROS are negative except as mentioned in HPI Vital Signs Vital Signs Vital Signs: 07/05/23 08:21 07/05/23 08:21 Temperature 97.6 F L Temperature Source Temporal Pulse Rate 102 H Respiratory Rate 16 Respiratory Effort Normal Respiratory Pattern Normal Blood Pressure 126/65 H Blood Pressure Mean 85 Pulse Ox 97 Oxygen Delivery Method Room Air Weight Weight: 161 lb 7 oz Body Mass Index (BMI) 25.2 Physical Exam Narrative General: Alert, Oriented x3, Cooperative. Acute fatigue HEENT: Atraumatic, PERRLA, EOMI, Normocephalic Oral: Oral mucosa dry. No Gingival or Mucosal Lesions/ Ulcerations Neck: Supple, No JVD, Negative Carotid Bruits Chest wall/Lungs: Air entry diminished in bilateral lung bases. No crepitation/rhonchi Cardiovascular: Regular rate, Regular Rhythm, Normal S1, Normal S2, No M/G/R Abdomen: Bowel Sounds Present, Soft, Non Tender, Non-Distended : Tenderness present over right lumbar and right iliac reason. Yellowish urine. No dysuria. Right ankle tenderness present. Mild suprapubic tenderness. Extremities: No edema, Capillary Refill Less than 3 Seconds Skin: No rashes, No breakdown Musculoskeletal: No Tenderness to Palpation of Joints or Extremities Neurological: Cranial nerves II-XII grossly intact, DTR 2+/4. No acute focal neurological deficit. Psych/Mental Status: Flat affect. Results Lab / Micro Data 07/05/23 08:55 07/05/23 08:55 Labs: Laboratory Results - last 24 hr 07/05/23 08:55: WBC 10.1, RBC 4.48, Hgb 13.1, Hct 39.4, MCV 87.9, MCH 29.2, MCHC 33.2, RDW Std Deviation 45.7 H, RDW Coeff of Gabi 14.3, Plt Count 285, MPV 9.8, Immature Gran % (Auto) 0.500, Neut % (Auto) 74.5 H, Lymph % (Auto) 19.0, [place] % (Auto) 5.0, Eos % (Auto) 0.6, Baso % (Auto) 0.4, Absolute Neuts (auto) 7.6, Absolute Lymphs (auto) 1.92, Nucleated RBC % 0, Sodium 128 L, Potassium 3.9, Chloride 95 L, Carbon Dioxide 24.0, Anion Gap 9, BUN 32 H, Creatinine 2.08 H, Estim Creat Clear Calc 29.72, Est GFR (MDRD) Af Amer 32 L, Est GFR (MDRD) Non-Af 26 L, BUN/Creatinine Ratio 15.4, Glucose 460 H*, Calcium 10.5 H, Total Bilirubin 0.50, AST 20, ALT 29, Alkaline Phosphatase 124 H, Troponin I High Sens 4, Total Protein 7.2, Albumin 3.8, Globulin 3.4, Albumin/Globulin Ratio 1.1, Lipase 23, Urine Color Yellow, Urine Clarity Clear, Urine pH 5.0, Ur Specific [place] 1.010, Urine Protein 15 H, Urine Glucose (UA) 1000 H, Urine Ketones Negative, Urine Occult Blood 150 H, Urine Nitrite Negative, Urine Bilirubin Negative, Urine Urobilinogen Normal, Ur Leukocyte Esterase Negative, Urine RBC 5-10 SEEN, Urine WBC 0 SEEN, Ur Squamous Epith Cells 0-5 SEEN, Urine Bacteria 0 SEEN, Urine Mucus 0 SEEN Micro: Microbiology 07/05/23 08:55 Mucosa - Nasopharyngeal SARS-CoV-2, Influenza & RSV (PCR) - Final Imaging Radiology Impression Abdomen/Pelvis CT 07/05/23 08:39 IMPRESSION: Nonobstructive bilateral intrarenal calculi. No obstructive uropathy is seen. Electronically Signed: Yosvany Call MD at 9:21 EDT , Assessment & Plan Assessment/Plan (1) STEFANIE (acute kidney injury): (2) Near syncope: (3) Renal colic on right side: PLAN: Plan This is 57-year-old female being admitted for dizziness dehydration and right renal ureteric colic lab features consistent with STEFAINE 1. Dizziness lightheadedness, hypotension at home most likely due to hypovolemia/dehydration: Patient is being admitted in PCU. Cardiac monitoring. IV fluid normal saline started given in ED. Continue IV fluid normal saline 100 mill per hour. Monitor intake and output. 2. STEFANIE with hypotonic hypovolemic hyponatremia: BUNs/creatinine 32/2.08. Her baseline creatinine runs around 1.15-1.30 in February 2023. BUNs/creatinine ratio 15. Serum sodium 128. Corrected sodium for hyperglycemia is 143. Pot assium normal. Bicarb 24. Anion gap 9. Continue fluid normal saline. Repeat BMP after 6 hours of IV fluid rehydration. Patient on multiple nephrotoxic medications including NSAID ketorolac, and meloxicam. Hold lisinopril. 3. Acute right ureteric colic pain: Abdomen/pelvis CT was done and shows nonobstructive bilateral intrarenal calculi. No obstructive uropathy seen. Pain control. IV fluid hydration. Follow-up urologist Dr. Anglin as an outpatient. She had right-sided ESWL done in February 2023 for right ureteric calculi 4. Hypertension: Currently blood pressure is normal 126/65 mmHg. Patient stated blood pressure was low at home. Continue IV fluid ordered. Hold antihypertensive medication 5. Diabetes mellitus type 2 with hyperglycemia: Glucose in BMP very high 460. Anion gap normal. Hold metformin and pioglitazone. 6. Dyslipidemia on Lipitor continued. 7. PTSD/anxiety and depression: Patient on sertraline 50 mg 3 times daily. Does need to reviewed. DVT prophylaxis, moderate risk on Lovenox 30 mG subcu daily. Living will/advanced directive/end of life care: Patient does have living will or advanced directive. Her son is the power of workers compensation attorney for health. After discussion of benefits/risks procedures involved with full code, DNR CC arrest and DNR CC, the patient opted for full code. Patient does want artificial life support including intubation, tube feed, ventilator and/chest compression, central venous catheter, vasopressor and DC shock if needed Total time spent in [id number] encounter in discussion of advanced directive 17 minutes. Microbiology Past 72 Hours 07/05/23 08:55 Mucosa - Nasopharyngeal SARS-CoV-2, Influenza & RSV (PCR) - Final Laboratory Results 07/05/23 08:55: WBC 10.1, RBC 4.48, Hgb 13.1, Hct 39.4, MCV 87.9, MCH 29.2, MCHC 33.2, RDW Std Deviation 45.7 H, RDW Coeff of Gabi 14.3, Plt Count 285, MPV 9.8, Immature Gran % (Auto) 0.500, Neut % (Auto) 74.5 H, Lymph % (Auto) 19.0, [place] % (Auto) 5.0, Eos % (Auto) 0.6, Baso % (Auto) 0.4, Absolute Neuts (auto) 7.6, Absolute Lymphs (auto) 1.92, Nucleated RBC % 0, Sodium 128 L, Potassium 3.9, Chloride 95 L, Carbon Dioxide 24.0, Anion Gap 9, BUN 32 H, Creatinine 2.08 H, Estim Creat Clear Calc 29.72, Est GFR (MDRD) Af Amer 32 L, Est GFR (MDRD) Non-Af 26 L, BUN/Creatinine Ratio 15.4, Glucose 460 H*, Calcium 10.5 H, Phosphorus 4.7, Magnesium 1.7, Total Bilirubin 0.50, AST 20, ALT 29, Alkaline Phosphatase 124 H, Troponin I High Sens 4, Total Protein 7.2, Albumin 3.8, Globulin 3.4, Albumin/Globulin Ratio 1.1, Lipase 23, Urine Color Yellow, Urine Clarity Clear, Urine pH 5.0, Ur Specific [place] 1.010, Urine Protein 15 H, Urine Glucose (UA) 1000 H, Urine Ketones Negative, Urine Occult Blood 150 H, Urine Nitrite Negative, Urine Bilirubin Negative, Urine Urobilinogen Normal, Ur Leukocyte Esterase Negative, Urine RBC 5-10 SEEN, Urine WBC 0 SEEN, Ur Squamous Epith Cells 0-5 SEEN, Urine Bacteria 0 SEEN, Urine Mucus 0 SEEN Clinical Impression(s) from Imaging Studies Abdomen/Pelvis CT 07/05/23 08:39 IMPRESSION: Nonobstructive bilateral intrarenal calculi. No obstructive uropathy is seen. Charges/Coding Visit Charges Inpatient E&M: 72509 Init Hosp L3 Procedures Hospitalists Procedures: 41855 Advncd Care Plan 30 Min
[2023-07-05 10:26] LABS: Magnesium 1.7 mg/dL (1.6-2.6); Phosphorus 4.7 mg/dL (2.5-4.9)
--- NOTE | 2023-07-05 10:38 | ED.RN ---
[facility]ED [facility] TO LET [facility] KNOW [facility] BE[facility]. FAXED REQUESTED PAPERWORK TO THEM.
[2023-07-05 11:02] LABS: Reflex Troponin-HS? (from REC) Y
[2023-07-05 11:46] LABS: Bedside Glucose 229 mg/dL (74-106)
[2023-07-05 11:48] LABS: Troponin-I HS 4 pg/mL (3.0-54.0)
[2023-07-05] MEDS: 0.9% Normal Saline (1000mL) 1,000 ML 100 ML IV (12:00)
[2023-07-05] MEDS: busPIRone 15 MG TABLET PO ×2 (14:08→21:05)
[2023-07-05] MEDS: Insulin Lispro 100 UNIT/ML INSULN.PEN 8 UNIT SC (14:08)
[2023-07-05 16:18] LABS: Anion Gap 5 (5-15); BUN 31 mg/dL (7-18); BUN/Creat Ratio 19.9 RATIO (10-20); Calcium,Total 9.8 mg/dL (8.5-10.1); Chloride 104 mmol/L (98-107); Creatinine, Serum 1.56 mg/dL (0.55-1.02); EST Glomerular Filtration Rate 37 mL/min (>60); Est Glom Filt Rate - Afr Amer 44 mL/min (>60); Estimated Creatinine Clearance 39.62 ml/min; Glucose 64 mg/dL (74-106); Potassium 3.6 mmol/L (3.5-5.1); Sodium Level 138 mmol/L (136-145)
[2023-07-05 16:29] LABS: Bedside Glucose 95 mg/dL (74-106)
[2023-07-05] MEDS: Sertraline 50 MG Tablet PO (17:11)
[2023-07-05] MEDS: Magnesium Chloride 64 MG Delay Rel.Tablet 128 MG PO (17:11)
[2023-07-05] MEDS: Atorvastatin Calcium 20 MG Tablet PO (21:05)
[2023-07-05] MEDS: Insulin Lispro 100 UNIT/ML INSULN.PEN SC (21:08)
[2023-07-05] MEDS: Insulin Glargine-YFGN 100 UNIT/ML Pen 10 UNIT SC (21:09)
[2023-07-05 21:41] LABS: Bedside Glucose 163 mg/dL (74-106)
[2023-07-06 03:05] VITALS: BP 122/69; PULSE 74; RESP 16; TEMP 36.7; O2SAT 98
[2023-07-06] MEDS: busPIRone 15 MG TABLET PO (06:05)
[2023-07-06 06:38] LABS: Bedside Glucose 147 mg/dL (74-106)
[2023-07-06 07:56] LABS: Thyroid Stim Hormone (TSH) 1.41 uIU/mL (0.358-3.74)
[2023-07-06 08:01] LABS: Anion Gap 8 (5-15); BUN 20 mg/dL (7-18); BUN/Creat Ratio 17.7 RATIO (10-20); Calcium,Total 9.1 mg/dL (8.5-10.1); Chloride 104 mmol/L (98-107); Creatinine, Serum 1.13 mg/dL (0.55-1.02); EST Glomerular Filtration Rate 53 mL/min (>60); Est Glom Filt Rate - Afr Amer 64 mL/min (>60); Glucose 142 mg/dL (74-106); Potassium 3.8 mmol/L (3.5-5.1); Sodium Level 138 mmol/L (136-145)
[2023-07-06 08:43] VITALS: BP 131/78; PULSE 78; RESP 12; TEMP 36.5; O2SAT 98
[2023-07-06] MEDS: Insulin Lispro 100 UNIT/ML INSULN.PEN 8 UNIT SC (08:47)
[2023-07-06] MEDS: lamoTRIgine 100 MG Tablet 200 MG PO (08:48)
[2023-07-06] MEDS: Magnesium Chloride 64 MG Delay Rel.Tablet 128 MG PO (08:48)
[2023-07-06 08:55] VITALS: O2SAT 98
--- NOTE | 2023-07-06 10:50 | CASEMGMT ---
RN CM Face to Face with patient for initial transition planning/care coordination assessment. RN CM introduced self and role at [facility]. Patient lying in bed, alert and oriented. Patient willing to participate in assessment and is able to answer all questions appropriately. Care providers, pharmacy, and demographics verified. PCP: Liliam Valente Specialists: Pain and mental health through [place] Preferred Pharmacy: [facility] Retail at discharge. Insurance: [place] Prescription Benefit: [place] Living Will/HPOA: yes, ex Edelmira katz LNOK: son Living Arrangements: Patient lives with son in a single story home with ramp to enter. Patient states she is independent at home Transportation: self, son DME/HHC: Patient has glucometer with supplies. No previous HHC or SNF Patient wishes to discharge home, denies need for home health at this time. Patient states he has no further needs or concerns at this time. CM to follow for discharge planning needs that may arise. Disposition Plan: Patient to discharge home with family support and follow-up plans in place. Marilyn DENNIS, RN, CM
[2023-07-06 11:26] LABS: Bedside Glucose 133 mg/dL (74-106)
[2023-07-06 11:26] LABS: Bedside Glucose 153 mg/dL (74-106)
[2023-07-06 11:36] LABS: Hemoglobin A1c 12.2 % (3.8-5.6)
--- NOTE | 2023-07-06 13:16 | PCM.DC ---
Discharge Instructions Diet Discharge Diet: Carb Control Diet Activity Discharge Activity: No Restrictions Follow Up Care Test Results: Test results from this visit will be discussed in further detail at your follow-up appointment, if applicable. Discharge Plan Admission Admit Date/Time: 07/05/23 09:51 Attending Provider: Jhonathan Palm Primary Care Provider: [facility],[place] Consulting Providers: Theodore Murillo Discharge Orders/Prescriptions Prescriptions: New lisinopril 5 mg tablet 5 mg PO DAILY Qty: 30 2RF insulin glargine [Lantus Solostar U-100 Insulin] 100 unit/mL (3 mL) insulin pen 15 unit subcut DAILY Qty: 15 0RF (DME) pen needle, diabetic 29 gauge needle See Rx Instructions .Route Qty: 100 0RF Rx Instructions: As directed Continued buspirone 15 mg tablet 15 mg PO TID empagliflozin 25 mg tablet 25 mg PO DAILY Rx Instructions: take 1/2 tablet 12.5 once a day lamotrigine [Lamictal] 200 mg tablet 200 mg PO DAILY melatonin [Meladox] 3 mg tablet extended release 3 mg PO QHS meloxicam 15 mg tablet 15 mg PO DAILY promethazine 25 mg tablet 25 mg PO TID PRN (Reason: nausea and vomiting) Qty: 14 0RF atorvastatin 20 mg tablet 20 mg PO DAILY buprenorphine HCl 75 mcg film 75 mcg buccal Q12H metformin 500 mg tablet 500 mg PO BID pioglitazone 45 mg tablet 45 mg PO DAILY sertraline 50 mg tablet 50 mg PO TID Patient Comments: TAKE 3 TABLETS BY MOUTH ONCE DAILY Discontinued lisinopril 20 mg tablet 20 mg PO DAILY ketorolac 10 mg tablet 10 mg PO Q6H PRN (Reason: pain) 5 Days Qty: 10 0RF Referrals / Follow Up: [facility] [Primary Care Provider] - Disposition Disposition (needs filled in before D/C Order can be placed): Home, Self Care
--- NOTE | 2023-07-06 13:36 | DS.PCM_ITS ---
Providers Date of Admission: 07/05/23 Date of Discharge: 07/06/23 Primary Care Physician: [facility] Reason For Visit: DIZZINESS, STEFANIE Diagnosis Discharge Diagnosis (1) STEFANIE (acute kidney injury): Status: Acute Code(s): N17.9 - Acute kidney failure, unspecified (2) Near syncope: Status: Acute Code(s): R55 - Syncope and collapse (3) Renal colic on right side: Status: Acute Code(s): N23 - Unspecified renal colic Medications at Discharge Home Medications buspirone 15 mg tablet 15 mg PO TID 10/17/22 empagliflozin 25 mg tablet 25 mg PO DAILY 10/17/22 lamotrigine 200 mg tablet (Lamictal) 200 mg PO DAILY mood disorder 10/17/22 melatonin 3 mg tablet,extended release (Meladox) 3 mg PO QHS sleep aid 10/17/22 meloxicam 15 mg tablet 15 mg PO DAILY 10/17/22 promethazine 25 mg tablet 25 mg PO TID PRN nausea and vomiting #14 tabs 10/17/22 atorvastatin 20 mg tablet 20 mg PO DAILY 02/02/23 buprenorphine HCl 75 mcg buccal film 75 mcg buccal Q12H 02/02/23 metformin 500 mg tablet 500 mg PO BID 02/02/23 pioglitazone 45 mg tablet 45 mg PO DAILY 02/02/23 sertraline 50 mg tablet 50 mg PO TID 02/02/23 insulin glargine 100 unit/mL (3 mL) subcutaneous pen (Lantus Solostar U-100 Insulin) 15 unit (0.15 mL) subcut DAILY #15 mL 07/06/23 lisinopril 5 mg tablet 5 mg PO DAILY #30 tabs 07/06/23 pen needle, diabetic 29 gauge #100 ea 07/06/23 Hospital Course Operations None Procedures - (CT abdomen pelvis without contrast) Summary of Care Provided Minutes Spent on Discharge: 35 Hospital Course: Patient is a 57-year-old female who presented to [facility] ED on 07/05/2023 with worsening lightheadedness and dizziness and right flank pain. Short hospital course as noted below. Discharged home with no therapy needs in stable condition on 07/05. 1. Dizziness/lightheadedness, resolved ? Presumed secondary to acute dehydration from volume losses in setting of poorly controlled diabetes with hyperglycemia and low medications as noted belo w. Improved with IV fluid resuscitation on admission, no further workup needed. 2. STEFANIE on CKD stage II, resolved ? Creatinine 2.08 on admit, baseline creatinine 1.1-1.3. Improved back to 1.1 on 07/05 with IV fluid resuscitation. Continue outpatient follow-up for CKD. 3. Poorly controlled type 2 diabetes mellitus with hyperglycemia ? Home regimen of metformin 500 mg twice daily, pioglitazone 45 mg daily, empagliflozin 25 mg daily. Blood glucose 460 on admission. A1c 12.2%, significantly up from 9.0% on 02/03/2023. Patient reported compliance with home medications. Started patient on Lantus 15 units daily in the morning on discharge; prescribed insulin pens with pen needles. Continue home oral diabetes medications as normal. Recommend close outpatient follow-up with PCP and could consider establishing with endocrinology as needed. 4. Right flank pain, resolved; history of right ureteral calculi ? Follows with Dr. Anglin, had ESWL done in 02/2023 for right ureteral calculi. CT abdomen pelvis on admit showed nonobstructive bilateral intrarenal calculi with no obstructive uropathy. Improved during hospitalization. Outpatient follow-up as needed. 5. Hypertension ? Home regimen of lisinopril 20 mg daily. Patient hypotensive on admission likely due to dehydration but remained normotensive after fluid resuscitation despite being off lisinopril. Will decrease to lisinopril 5 mg daily on discharge. Recommended close outpatient follow-up with PCP. Chronic medical conditions: ? Mood disorder: Stable. Continued home sertraline, BuSpar, Lamictal, melatonin at night. ? Hyperlipidemia: Continue home statin. ? Chronic pain: Continue home buprenorphine. Total clinical time spent by myself addressing the patient's medical issues, reviewing all the data, and collaborating with patient's care team: 35 minutes. Physical Exam Const alert, oriented x3, no apparent distress and average body habitus General Appearance: cooperative and comfortable HEENT normocephalic, head/scalp atraumatic, hearing grossly normal bilaterally, nasal mucous membranes and turbinates normal and moist oral mucous membranes Eyes PERRL, EOMs intact bilaterally and conjunctivae normal Neck full ROM Chest inspection of chest normal Resp normal respiratory effort, normal air movement, no use of accessory muscles and clear to auscultation bilaterally Cardio regular rate, regular rhythm, no murmurs and peripheral pulses 2+ throughout GI normal to inspection, nondistended, normoactive bowel sounds, soft to palpation, non-tender and non-distended Back/Spine normal ROM Extremity normal to inspection, full ROM and no pedal edema Skin no rashes or lesions noted Neuro moves all extremities and no focal motor deficits Speech: speech normal Psych mental status grossly normal Weight / BMI Weight Weight: 73.227 kg Body Mass Index (BMI) 25.2 ABG / Lab / Microbiology Data 07/05/23 08:55 07/06/23 06:30 Laboratory: Laboratory Results - last 24 hr 07/05/23 15:28: Sodium 138, Potassium 3.6, Chloride 104, Carbon Dioxide 29.0, Anion Gap 5, BUN 31 H, Creatinine 1.56 H, Estim Creat Clear Calc 39.62, Est GFR (MDRD) Af Amer 44 L, Est GFR (MDRD) Non-Af 37 L, BUN/Creatinine Ratio 19.9, Glucose 64 L, Calcium 9.8 07/05/23 16:00: POC Glucose 95 07/05/23 21:07: POC Glucose 163 H 07/06/23 06:09: POC Glucose 147 H 07/06/23 06:30: Sodium 138, Potassium 3.8, Chloride 104, Carbon Dioxide 26.0, Anion Gap 8, BUN 20 H, Creatinine 1.13 H, Estim Creat Clear Calc 54.70, Est GFR (MDRD) Af Amer 64, Est GFR (MDRD) Non-Af 53 L, BUN/Creatinine Ratio 17.7, Glucose 142 H, Hemoglobin A1c 12.2 H, Calcium 9.1, TSH 1.41 07/06/23 08:46: POC Glucose 153 H 07/06/23 11:08: POC Glucose 133 H Microbiology: Microbiology 07/05/23 08:55 Mucosa - Nasopharyngeal SARS-CoV-2, Influenza & RSV (PCR) - Final D/C Instructions Discharge Diet: Carb Control Diet Meaningful Use Info Meaningful Use Meaningful Use Diagnoses (Choose all that apply): None applicable Ischemic Stroke Statin Dosing Therapy Reference: STATIN DOSE THERAPY REFERENCE: * Patients > 75 years receive moderate or high dose statin therapy. * Patients 75 years or YOUNGER should receive HIGH intensity statin dose unless contraindicated. You will be required to document reason for non-treatment if statin daily dose does not meet guidelines. HIGH DOSE STATIN THERAPY DAILY Atorvastatin > than or = to 40 mg Rosuvastatin > than or = to 20 mg Amlodipine + Atorvastatin > than or = to 2.5/40 mg Ezetimibe + Simvastatin 10/80 mg Simvastatin 80mg Discharge Plan Admission Admit Date/Time: 07/05/23 09:51 Attending Provider: Jhonathan Palm Primary Care Provider: [facility],[place] Consulting Providers: Theodore Murillo Discharge Orders/Prescriptions Prescriptions: New lisinopril 5 mg tablet 5 mg PO DAILY Qty: 30 2RF insulin glargine [Lantus Solostar U-100 Insulin] 100 unit/mL (3 mL) insulin pen 15 unit subcut DAILY Qty: 15 0RF (DME) pen needle, diabetic 29 gauge needle See Rx Instructions .Route Qty: 100 0RF Rx Instructions: As directed Continued buspirone 15 mg tablet 15 mg PO TID empagliflozin 25 mg tablet 25 mg PO DAILY Rx Instructions: take 1/2 tablet 12.5 once a day lamotrigine [Lamictal] 200 mg tablet 200 mg PO DAILY melatonin [Meladox] 3 mg tablet extended release 3 mg PO QHS meloxicam 15 mg tablet 15 mg PO DAILY promethazine 25 mg tablet 25 mg PO TID PRN (Reason: nausea and vomiting) Qty: 14 0RF atorvastatin 20 mg tablet 20 mg PO DAILY buprenorphine HCl 75 mcg film 75 mcg buccal Q12H metformin 500 mg tablet 500 mg PO BID pioglitazone 45 mg tablet 45 mg PO DAILY sertraline 50 mg tablet 50 mg PO TID Patient Comments: TAKE 3 TABLETS BY MOUTH ONCE DAILY Discontinued lisinopril 20 mg tablet 20 mg PO DAILY ketorolac 10 mg tablet 10 mg PO Q6H PRN (Reason: pain) 5 Days Qty: 10 0RF [facility]errals [facility] - Disposition Disposition (needs filled in before D/C Order can be placed): Home, Self Care Charges/Coding Visit Charges Inpatient E&M: 00351 Disch Hosp >30min
--- NOTE | 2023-07-06 14:09 | CASEMGMT ---
Patient has order for discharge. Patient discharging on insulin. SHAUN SHANKAR called [facility] and insulin cost is $124.57. Patient only has [facility] for medications. SHAUN SHANKAR in to update nursing. Per nursing, can send patient with insulin pen that shewas using at hospital. Patient states she will fill Lisinopril and pen needle scripts and follow-up with PCP at [place] for medications. SHAUN SHANKAR updated nursing and hospitalist. Patient had no further questions or concerns.
== END 2023-07-06 14:44 | disposition home or self-care (01) | DRG 641 ==
LOC: ED 10:04 → PCU 10:22
PROVIDERS: Admitting Provider Internal Medicine; Emergency Provider Emergency Medicine; Visit Provider Hospitalist
DX: E86.0 Dehydration (principal); N17.9 Acute kidney failure, unspecified; N20.1 Calculus of ureter; E11.22 Type 2 diabetes mellitus with diabetic chronic kidney disease; E11.65 Type 2 diabetes mellitus with hyperglycemia; I12.9 Hypertensive chronic kidney disease with stage 1 through stage 4 chronic kidney disease, or unspecified chronic kidney disease; F32.A Depression, unspecified; E78.00 Pure hypercholesterolemia, unspecified; N18.2 Chronic kidney disease, stage 2 (mild); F17.210 Nicotine dependence, cigarettes, uncomplicated; F41.9 Anxiety disorder, unspecified; F43.12 Post-traumatic stress disorder, chronic; G89.29 Other chronic pain; Z79.84 Long term (current) use of oral hypoglycemic drugs; Z79.899 Other long term (current) drug therapy; Z87.442 Personal history of urinary calculi
CPT/HCPCS: 36415; 74176; 80048; 80053; 81001; 82962; 83036; 83690; 83735; 84100; 84443; 84484; 85025; 87631; 93005; 97802; 99284; 99406; J7030; A4216

== ENCOUNTER → 2023-11-28 | Outpatient (CLI) | payer OTHER, SELFPAY ==
--- NOTE | 2023-11-28 07:54 | BI_ITS ---
MAMMOGRAPHY - BILATERAL SCREENING REASON FOR EXAM: Female, 58 years old. Routine annual screening examination. PERTINENT HISTORY: Non-contributory. TECHNIQUE: Digital bilateral breast dinh (3D mammographic acquisition) in the CC and MLO projections. 2-D mediolateral oblique (MLO) and craniocaudad (CC) views of both breasts were obtained. CAD: Full Field Digital Mammography with Computer Added Detection was performed. COMPARISON: Comparison is made with prior study November 03, 2022. FINDINGS: Breast Composition: The breasts are heterogeneously dense, which may obscure small masses. There are no dominant masses or suspicious calcifications. No other significant abnormalities are identified. There has been no significant change since the prior study. BI/SCRN MAMM (CAD)W/DINH BILAT IMPRESSION: Stable bilateral screening mammogram. Yearly follow-up mammogram recommended. (A) ASSESSMENT CATEGORY: BIRADS Category 1: Negative. A letter regarding these results will be sent to the patient by the facility within 30 days. Approximately 10% of breast cancers are not detected by mammography. A normal mammogram should not delay biopsy of a clinically suspicious abnormality. [id number] Electronically Signed: Yosvany Call MD at 8:44 EDT ,
== END | disposition home or self-care (01) ==
PROVIDERS: Referring Provider Nurse Practitioner Gerontology; Visit Provider Nurse Practitioner Gerontology
DX: Z12.31 Encounter for screening mammogram for malignant neoplasm of breast (principal)
CPT/HCPCS: 77063; 77067

== ENCOUNTER 2024-02-06 08:08 | Day surgery (SDC) | payer OTHER, SELFPAY ==
[2024-02-06] VITALS (8 sets, daily range): BP systolic 83–131; BP diastolic 52–74; PULSE 60–76; RESP 16; TEMP 36.1–36.6; O2SAT 97–100; BMI 24.1
--- NOTE | 2024-02-06 08:57 | PRE.ANES_ITS ---
ASA Classification* ASA Classification ASA Classification: 2 Assessment & Plan Anesthesia* Anesthesia Assessment Anesthesia Assessment: Discussed sedation and/or anesthesia options, risks, benefits, and alternatives with patient/parents/legal guardian/POA. Questions invited. The patient/parents/legal guardian/POA seems to understand and agrees to proceed with anesthesia plan. Reviewed the physical assessment, medical history, allergy history and patient home medications list prior to surgery/procedure/anesthetic and documented any changes. Performed airway and anesthesia risk assessments. Anesthesia Type Anesthesia Type: MAC Anesthesia Focused Assessment* Temperature: 97.4 F Pulse Rate: 76 Blood Pressure: 131/74 Respiratory Rate: 16 Pulse Ox: 100 Airway Assessment Mouth opens: >3 cm Mallampati Score: II Focused Labs Anesthesia Preop lab: CBC WBC 10.1 K/mm3 (4.4-11.0) 07/05/23 08:55 RBC 4.48 M/mm3 (4.2-5.4) 07/05/23 08:55 Hgb 13.1 g/dL (12.0-15.0) 07/05/23 08:55 Hct 39.4 % (37-47) 07/05/23 08:55 Plt Count 285 K/mm3 (150-450) 07/05/23 08:55 CHEMISTRY Potassium 3.8 mmol/L (3.5-5.1) 07/06/23 06:30 Sodium 138 mmol/L (136-145) 07/06/23 06:30 Magnesium 1.7 mg/dL (1.6-2.6) 07/05/23 08:55 Phosphorus 4.7 mg/dL (2.5-4.9) 07/05/23 08:55 BUN 20 mg/dL (7-18) H 07/06/23 06:30 Creatinine 1.13 mg/dL (0.55-1.02) H 07/06/23 06:30 Glucose 142 mg/dL (74-106) H 07/06/23 06:30 POC Glucose 133 mg/dL (74-106) H 07/06/23 11:08 TSH 1.41 uIU/mL (0.358-3.74) 07/06/23 06:30 COAG Pre-Assessment Diagnosis/Proposed Procedure Planned Operative Procedure(s): CSCOPE Anesthesia History Anesthesia History - insurance collector: Anesthesia History - insurance collector Hx Hospitalization Yes: 07/2023 FOR KIDNEY STONE 02/02/24 09:49 Any Problems With Anesthesia Yes: AWAKENED DURING CSCOPE 02/02/24 09:49 IN THE PAST/N,V Cholinesterase deficiency No 02/02/24 09:49 You/Your Family Experience No 02/02/24 09:49 fever (hyperthermia) with Relationship Recent Exposure to Contagious No 02/06/24 08:36 Disease Does patient have nerve No 02/02/24 09:49 stimulator Patient instructed to have device shut off --Does patient have Pacemaker No 02/06/24 08:36 or ICD? When Was Last Pacemaker Check QUESTION #4 FULL TEXT: You/Your Family Experience fever (hyperthermia) with Anesthesia Last Oral Intake Last Oral intake: Last Oral Intake NPO since 05:15 02/06/24 08:36 Meds taken in AM with sips of Yes 02/06/24 08:36 water? Meds patient instructed to metformin, lisinopril 02/06/24 08:36 take am of surgery PONV PONV - insurance collector: PONV - insurance collector Female Yes 02/02/24 09:49 HX of Motion Sickness Yes 02/02/24 09:49 HX of N/V After Surgery Yes 02/02/24 09:49 Non-Smoker No 02/02/24 09:49 Duration of Surgery greater No 02/02/24 09:49 than 60 minutes Number of Risk Factors 3 02/02/24 09:49 PONV Score Moderate Risk 02/02/24 09:49 Height & Weight Height & Weight: Anesthesia: Height & Weight Height 5 ft 8 in 02/06/24 08:36 Weight: 72 kg 02/06/24 08:36 Body Mass Index (BMI) 24.1 02/06/24 08:36 Respiratory Assessment Respiratory Assessment - insurance collector: Respiratory Tract Infection Hx - insurance collector Hx Respiratory Tract Infection No 02/02/24 09:49 STOP Sleep Apnea STOP Sleep Apnea - insurance collector: STOP Sleep Apnea - insurance collector Hx Hypertension Yes: CONTROLLED WITH MED 02/02/24 09:49 Hx Sleep Apnea No 02/02/24 09:49 CPAP No 02/02/24 09:49 BIPAP Do you snore loudly (louder No 02/02/24 09:49 than talking or can be heard Do you often feel tired/ Yes 02/02/24 09:49 fatigued/ sleepy during daytime? Has anyone observed you stop No 02/02/24 09:49 breathing during sleep? STOP Results Positive 02/02/24 09:49 QUESTION #5 FULL TEXT : Do you snore loudly (louder than talking or can be heard through closed doors)? Tobacco Use History Tobacco Use History - insurance collector: Tobacco Use History - insurance collector Tobacco Use Smoking Status Current some day smoker 02/02/24 09:49 Hx Tobacco Use Yes 02/02/24 09:49 Years Smoking Packs Smoked per Day Smoking Cessation Date was within the last 15 years Hx Smoking Cessation Date Hx Smoking Cessation Counseling Hematologic Medial History Hematologic Hx - insurance collector: Hematologic Medical Hx - field support specialist Hx of Blood Transfusion No 02/02/24 09:49 Hx of Transfusion in last 3 No 02/02/24 09:49 Months Date of Last Transfusion (if within last 3 months) Ever experience any problems No 02/02/24 09:49 with transfusion(s)? Specify any problems Hx of Preganancy in last 3 No 02/02/24 09:49 Months Nurse Filling Out Transfusion DSCHRIBER 02/02/24 09:49 & Questions: Date: 02/02/24 02/02/24 09:49 Time: 09:53 02/02/24 09:49 Patient unable to answer at this time (ie. confused, unrespo /Reproduction History /Reproductive History - insurance collector: /Reproductive Hx- insurance collector Hx Now No 02/02/24 09:49 Gestational Age (in weeks): EDC: Hx Hx Para Hx Section SAB No 02/02/24 09:49 PFSH Medical History Wears hearing aid Wears glasses Wears dentures Alcohol use Insulin dependent diabetes mellitus Low iron Night terrors Dietary restriction Smoker History of pain when walking Cardiology follow-up encounter Diarrhea GERD (gastroesophageal reflux disease) Post-menopausal Syncope High cholesterol History of stress test Ureterolithiasis Intractable pain PTSD (post-traumatic stress disorder) Depression Anxiety Hypertension Home Medications ?Medication ?Instructions ?Recorded ?Last Taken ?Type buspirone 15 mg tablet 15 mg PO TID 10/17/22 Unknown History empagliflozin 25 mg tablet 25 mg PO DAILY 10/17/22 Unknown History melatonin 3 mg tablet,extended 6 mg PO QHS sleep aid 10/17/22 Unknown History release (Meladox) meloxicam 15 mg tablet 15 mg PO DAILY 10/17/22 Unknown History atorvastatin 20 mg tablet 20 mg PO DAILY 02/02/23 Unknown History metformin 500 mg tablet 500 mg PO BID 02/02/23 02/06/24 History pioglitazone 45 mg tablet 45 mg PO DAILY 02/02/23 Unknown History lisinopril 5 mg tablet 5 mg PO DAILY #30 tabs 07/06/23 02/06/24 Rx pen needle, diabetic 29 gauge #100 ea 07/06/23 Unknown Rx ferrous sulfate 325 mg (65 mg 325 mg PO QDAY 11/16/23 Unknown History iron) tablet hydroxyzine pamoate 25 mg capsule 25 mg PO QHS 11/16/23 Unknown History multivitamin 1 tab PO QAM 11/16/23 Unknown History prazosin 1 mg capsule 1 mg PO QHS 11/16/23 Unknown History sertraline 50 mg tablet 150 mg PO QDAY 11/16/23 Unknown History tamsulosin 0.4 mg capsule 0.4 mg PO QDAY PRN nausea 11/16/23 Unknown History insulin glargine 100 unit/mL (3 20 unit subcut QHS 02/02/24 Unknown History mL) subcutaneous pen (Lantus Solostar U-100 Insulin) semaglutide 0.25 mg or 0.5 mg (2 0.25 mg subcut SALAZAR 02/02/24 01/28/24 History mg/3 mL) subcutaneous pen injector (Ozempic) Allergy/AdvReac Type Severity Reaction Status Date / Time haloperidol (From Haldol) Allergy Severe Hives Verified 02/06/24 08:33 clindamycin Allergy Intermediate Hives Verified 02/06/24 08:33 ondansetron (From Zofran) Allergy Intermediate Hives Verified 02/06/24 08:33 Family History Mother Diabetes Heart disease Hypertension CAD (coronary artery disease) Kidney disease Seizures Surgical History Hx of colonoscopy History of carpal tunnel surgery of right wrist History of cystoscopy History of microdiscectomy History of throat surgery Social History household members: none housing: house Smoking Status: Current some day smoker tobacco type: cigarettes alcohol intake: never Review of Systems (Anesthesia) ROS Narrative System reviewed and no additional complaints, except as documented.
[2024-02-06 09:10] LABS: Bedside Glucose 220 mg/dL (74-106)
--- NOTE | 2024-02-06 09:36 | HP.PCM_ITS ---
HPI - General General Date of Admission: 02/06/24 Date of Service: 02/06/24 Chief Complaint: Screening colonoscopy HPI Narrative SONNY AMBROSE, is a 58 F who presents for an elective screening colonoscopy. Her last colonoscopy was at least 10 years prior. She denies any new issues or complaints. [facility] Medical History (Updated 02/06/24 @ 09:[address] Simeon Hernandez MD) Encounter for screening colonoscopy Wears hearing aid Wears glasses Wears dentures Alcohol use Insulin dependent diabetes mellitus Low iron Night terrors Dietary restriction Smoker History of pain when walking Cardiology follow-up encounter Diarrhea GERD (gastroesophageal reflux disease) Post-menopausal Syncope High cholesterol History of stress test Ureterolithiasis Intractable pain PTSD (post-traumatic stress disorder) Depression Anxiety Hypertension Home Medications ?Medication ?Instructions ?Recorded ?Last Taken ?Type buspirone 15 mg tablet 15 mg PO TID 10/17/22 Unknown History empagliflozin 25 mg tablet 25 mg PO DAILY 10/17/22 Unknown History melatonin 3 mg tablet,extended 6 mg PO QHS sleep aid 10/17/22 Unknown History release (Meladox) meloxicam 15 mg tablet 15 mg PO DAILY 10/17/22 Unknown History atorvastatin 20 mg tablet 20 mg PO DAILY 02/02/23 Unknown History metformin 500 mg tablet 500 mg PO BID 02/02/23 02/06/24 History pioglitazone 45 mg tablet 45 mg PO DAILY 02/02/23 Unknown History lisinopril 5 mg tablet 5 mg PO DAILY #30 tabs 07/06/23 02/06/24 Rx pen needle, diabetic 29 gauge #100 ea 07/06/23 Unknown Rx ferrous sulfate 325 mg (65 mg 325 mg PO QDAY 11/16/23 Unknown History iron) tablet hydroxyzine pamoate 25 mg capsule 25 mg PO QHS 11/16/23 Unknown History multivitamin 1 tab PO QAM 11/16/23 Unknown History prazosin 1 mg capsule 1 mg PO QHS 11/16/23 Unknown History sertraline 50 mg tablet 150 mg PO QDAY 11/16/23 Unknown History tamsulosin 0.4 mg capsule 0.4 mg PO QDAY PRN nausea 11/16/23 Unknown History insulin glargine 100 unit/mL (3 20 unit subcut QHS 02/02/24 Unknown History mL) subcutaneous pen (Lantus Solostar U-100 Insulin) semaglutide 0.25 mg or 0.5 mg (2 0.25 mg subcut SALAZAR 02/02/24 01/28/24 History mg/3 mL) subcutaneous pen injector (Ozempic) Allergy/AdvReac Type Severity Reaction Status Date / Time haloperidol (From Haldol) Allergy Severe Hives Verified 02/06/24 08:33 clindamycin Allergy Intermediate Hives Verified 02/06/24 08:33 ondansetron (From Zofran) Allergy Intermediate Hives Verified 02/06/24 08:33 Family History Mother Diabetes Heart disease Hypertension CAD (coronary artery disease) Kidney disease Seizures Surgical History Hx of colonoscopy History of carpal tunnel surgery of right wrist History of cystoscopy History of microdiscectomy History of throat surgery Social History household members: none housing: house Smoking Status: Current some day smoker tobacco type: cigarettes alcohol intake: never Vital Signs Vital Signs Vital Signs: 02/06/24 08:36 02/06/24 08:36 02/06/24 08:58 Temperature 97.4 F L 97.4 F L Temperature Source Temporal Pulse Rate 76 76 Respiratory Rate 16 16 Respiratory Pattern Normal Blood Pressure 131/74 H 131/74 H Blood Pressure Mean 93 Blood Pressure Source Monitor Blood Pressure Position Sitting Blood Pressure Location Right Arm Pulse Ox 100 100 Oxygen Delivery Method Room Air Weight Weight: 158 lb 11.725 oz Body Mass Index (BMI) 24.1 Physical Exam Narrative She is alert and oriented x 3. She is in no acute distress. Head is normocephalic and atraumatic. Pupils are equal round and reactive to light. Abdomen is soft nontender nondistended Results Lab / Micro Data Labs: Laboratory Results - last 24 hr 02/06/24 08:26: POC Glucose 220 H Assessment & Plan Assessment/Plan (1) Encounter for screening colonoscopy: PLAN: The patient is a 58-year-old female in need of a screening colonoscopy. Her last colonoscopy was about 10 years ago. She denies any new issues or problems. We again reviewed the details of the planned procedure including risks benefits and alternatives. She wishes to proceed. Procedure will begin momentarily Charges/Coding Visit Charges Inpatient E&M: 78796 Init Hosp L1
--- NOTE | 2024-02-06 10:07 | OP.COLON_ITS ---
Patient Name: Amanda Duenas Procedure Date: 02/06/2024 9:34 AM Date of : 1965 Age: 58 Procedure: Colonoscopy Indications: Screening for colorectal malignant neoplasm Providers: Simeon Hernandez MD Referring MD: Jordon Manriquez Medicines: Monitored Anesthesia Care Patient Profile: Refer to note in patient chart for documentation of history and physical. Last Colonoscopy: more than 10 years ago. Complications: No immediate complications. Estimated blood loss: None. Procedure: Pre-Anesthesia Assessment: - Prior to the procedure, a History and Physical was performed, and patient medications and allergies were reviewed. The patient's tolerance of previous anesthesia was also reviewed. The risks and benefits of the procedure and the sedation options and risks were discussed with the patient. All questions were answered, and informed consent was obtained. Prior Anticoagulants: The patient has taken no anticoagulant or antiplatelet agents. ASA Grade Assessment: II - A patient with mild systemic disease. After reviewing the risks and benefits, the patient was deemed in satisfactory condition to undergo the procedure. After I obtained informed consent, the scope was passed under direct vision. Throughout the procedure, the patient's blood pressure, pulse, and oxygen saturations were monitored continuously. The adult colonoscope was introduced through the anus and advanced to the cecum, identified by appendiceal orifice and ileocecal valve. The ileocecal valve, appendiceal orifice, and rectum were photographed. The entire colon was well visualized. The colonoscopy was performed without difficulty. The patient tolerated the procedure well. The quality of the bowel preparation was adequate. Moderate Sedation: See the other procedure note for documentation of moderate sedation with intraservice time. Scope In: 9:48:23 AM Scope Withdrawal Time 0 hours 6 minutes 47 seconds Scope Out: 10:00:37 AM Total Procedure Duration Time 0 hours 12 minutes 14 seconds Findings: The perianal and digital rectal examinations were normal. The entire examined colon appeared normal on direct and retroflexion views. Impression: - The entire examined colon is normal on direct and retroflexion views. - No specimens collected. Recommendation: - Discharge patient to home (ambulatory). - High fiber diet. - Repeat colonoscopy in 10 years for screening purposes. - Return to my office PRN. - Continue present medications. Procedure Code(s): --- Professional --- 41281, Colonoscopy, flexible; diagnostic, including collection of specimen(s) by brushing or washing, when performed (separate procedure) Diagnosis Code(s): --- Professional --- Z12.11, Encounter for screening for malignant neoplasm of colon CPT copyright 2021 [employer]. All rights reserved. The codes documented in this report are preliminary and upon assistant chief train dispatcher review may be revised to meet current compliance requirements. Simeon Hernandez MD 02/06/2024 10:06:34 AM This report has been signed electronically. Number of Addenda: 0 Note Initiated On: 02/06/2024 9:34 AM
--- NOTE | 2024-02-06 10:07 | OP.CCLET_ITS ---
02/06/2024 Jordon Manriquez Re : Colonoscopy procedure for Amanda Duenas Dear Dominic This procedure was performed on Tuesday, February 06, 2024. My impressions and recommendations are as follows: Impressions : - The entire examined colon is normal on direct and retroflexion views. - No specimens collected. Recommendations : - Discharge patient to home (ambulatory). - High fiber diet. - Repeat colonoscopy in 10 years for screening purposes. - Return to my office PRN. - Continue present medications. My findings are described in the full procedure note, which is enclosed. If I can be of further assistance, please feel free to contact me at . Sincerely, Simeon Hernandez MD 02/06/2024 10:06:34 AM This report has been signed electronically.
--- NOTE | 2024-02-06 10:14 | PCM.POST.ANE ---
Anesthesia: Postop Eval I Current Vital Signs Temperature: 97 F Pulse Rate: 62 Blood Pressure: 83/57 Respiratory Rate: 16 Pulse Ox: 99 Oxygen Delivery Method: Room Air Assessment Airway patent: Yes Spontaneous unlabored respirations: Yes Mental status: Asleep nausea: No Vomiting: No Anesthesia Complication: No Fluid Hydration Crystalloid volume administer (ml): 50 Total IV fluid infused: 50 Progress Note Anesthesia document: Postop Eval 1 completed: Yes
--- NOTE | 2024-02-06 16:40 | PCM.POSTANE2 ---
Anesthesia Postop Eval I Sum Postop Eval Completion status Anesthesia document: Postop Eval 1 completed: Yes Anesthesia Postop Eval I Summary Anesthesia Postop Eval I Summary: Anesthesia Postop Eval I: Assessment Summary Airway patent Yes 02/06/24 10:16 [email or web address] Spontaneous unlabored Yes 02/06/24 10:16 [email or web address] respirations Mental status Asleep 02/06/24 10:16 [email or web address] nausea No 02/06/24 10:16 [email or web address] Vomiting No 02/06/24 10:16 [email or web address] Anesthesia Postop Eval I: Fluid Summary Crystalloid volume administer 50 02/06/24 10:16 [email or web address] (ml) Colloids volume administered ( ml) Blood Product volume administered (ml) Total IV fluid infused 50 02/06/24 10:16 [email or web address] Anesthesia Postop Eval I: Summary Notes Anesthesia Complication No 02/06/24 10:16 [email or web address] Anesthesia Complication Comment: Post-operative progress note Anesthesia: Postop Eval II Evaluation Mental status: Awake and Calm Pain Level: 0 nausea: No Vomiting: No Complications Anesthesia Complication: No
== END 2024-02-06 10:39 | disposition home or self-care (01) ==
LOC: EN 08:09 → AC 08:09
PROVIDERS: PCP Nurse Practitioner Gerontology; Referring Provider Nurse Practitioner Gerontology; Visit Provider Surgery
PROC: 0DJD8ZZ Inspection of Lower Intestinal Tract, Via Natural or Artificial Opening Endoscopic (ICD-10-PCS; CPT 45378; principal; 2024-02-06 09:25)
DX: Z12.11 Encounter for screening for malignant neoplasm of colon (principal); E11.9 Type 2 diabetes mellitus without complications; Z79.4 Long term (current) use of insulin; R19.7 Diarrhea, unspecified; I10 Essential (primary) hypertension; K21.9 Gastro-esophageal reflux disease without esophagitis; F43.10 Post-traumatic stress disorder, unspecified; F41.9 Anxiety disorder, unspecified; F32.A Depression, unspecified; E61.1 Iron deficiency; E78.00 Pure hypercholesterolemia, unspecified; F17.210 Nicotine dependence, cigarettes, uncomplicated; Z88.1 Allergy status to other antibiotic agents; Z78.0 Asymptomatic menopausal state; Z79.85 Long-term (current) use of injectable non-insulin antidiabetic drugs; Z79.84 Long term (current) use of oral hypoglycemic drugs; Z79.899 Other long term (current) drug therapy
CPT/HCPCS: 45378; 82962; A4216

== ENCOUNTER → 2024-06-14 | Outpatient (CLI) | payer OTHER, SELFPAY ==
--- NOTE | 2024-06-14 08:30 | MRI_ITS ---
PROCEDURE: SPINE LUMBAR (ROUTINE) 06/14/2024 REASON FOR EXAM: RADICULOPATHY,LUMBAR REGION TECHNIQUE: Multiplaner MRI of the lumbar spine performed without contrast. Multiple pulse sequences were obtained. COMPARISON: None FINDINGS: Vertebral body heights are within normal limits. Negative for fracture or marrow replacement. Degenerative endplate changes predominantly at L2-3 and L5-S1. Fully formed disc at S1-S2. Mild levoscoliosis. Trace retrolisthesis of L3-4. Conus medullaris is intact and terminates at L1. Mild paraspinal muscle atrophy without mass. L1-2: No focal disc abnormality, spinal stenosis or foraminal narrowing. Mild bilateral facet arthropathy. L2-3: Diffuse posterior disc bulge. Moderate bilateral facet arthrosis. Ligamentum flavum hypertrophy. Mild/moderate spinal stenosis. Severe right and moderate left foraminal narrowing. L3-4: Posterior disc bulge slightly eccentric to the right. Moderate bilateral facet arthrosis. No significant spinal stenosis. Mild bilateral foraminal narrowing. L4-5: Posterior disc bulge eccentric to the left. Moderate bilateral facet arthrosis. Prior left laminectomy. Mild spinal stenosis and moderate narrowing of the left lateral recess. Mild right and severe left foraminal narrowing. L5-S1: Posterior disc osteophyte complex. Moderate bilateral facet arthrosis. Moderate spinal stenosis, greatest laterally with narrowing of both lateral recesses. Moderate/severe right and severe left foraminal narrowing. MRI/Spine Lumbar (Routine) IMPRESSION: 1. Transitional lumbosacral anatomy with a fully formed disc at S1-2. This req uires careful correlation with surgical levels if surgery is considered. 2. Acquired [id number] spinal stenosis at L2-3, L4-5 and L5-S1. 3. Acquired multilevel foraminal narrowing, severe at multiple levels. See com ments above. 4. Mild levoscoliosis. Reading Location: [facility]
== END | disposition home or self-care (01) ==
LOC: MRI 07:56
PROVIDERS: PCP Nurse Practitioner Gerontology; Referring Provider Nurse Practitioner Gerontology; Visit Provider Nurse Practitioner Gerontology
DX: M54.16 Radiculopathy, lumbar region (principal)
CPT/HCPCS: 72148

== ENCOUNTER → 2024-12-03 | Outpatient (CLI) | payer OTHER, SELFPAY ==
--- OUTSIDE RECORDS SUMMARY | 2024-01-23 14:25 | XMS RPT_ITS ---
Author Name Auto Generated Organization [facility] Care Team Providers Care Vending Machine Repairer Name Role Phone NO, PHYSICIAN Primary Care Unavailable AMBAR ALFARO Referring Unavailable AMBAR ALFARO Admitting Unavailable MICHELLE OLIVERA Attending Unavailable MICHELLE OLIVERA Attending Unavailable NO, PHYSICIAN Primary Care Unavailable PROBLEMS No Problem Records Found PROCEDURES No Procedure Records Found RESULTS PROGRESS Observed: 01/23/2024 1:31 PM Status: COMPLETED Source: [facility] - Neurology [facility] Surendra Cade [facility] [address] [place] [address] Nerve Conduction & EMG Report Patient: Sonny Ambrose Sex: Female Date of : 1965 Visit Date: 01/23/2024 1:32 PM Age: 58 Years Examining MD: Michelle Olivera MD Referred by: Ambar Alfaro CNP Temperature: 39.1 Current Height: 5 feet 7 inch Referred for: EMG:RUE numbness and paresthesias for a year. No neck pain. + DM. Hx of R CTS surgery. Plan: The study is design to evaluate for radiculopathy, plexopathy, entrapment neuropathy, median or ulnar neuropathy. Indication, risk, side effects, and alternatives were explained. Patient agreed to proceed. Patient was instructed to clean the puncture site with soap and water and put some ice pack for bruising. Impression: This is an abnormal EMG. 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 There is NO electrodiagnostic evidence of right cervical radiculopathy, brachial plexopathy or ulnar neuropathy at this time. EMG Summary: The right median motor nerve conduction study showed prolonged distal latency, normal amplitude and conduction velocity. The right median sensory nerve conduction study showed prolonged distal latency and decreased amplitude. The right ulnar motor and sensory nerve conduction studies was normal. The right radial sensory nerve conduction study was normal. Needle EMG of the muscles tested showed no abnormal spontaneous activity. Normal motor unit action potentials and recruitment patterns were seen. Michelle Olivera MD Diplomate, ABPN, NBPAS Clinical Neurophysiology, Neurology, Vascular Neurology and Sleep [facility] [place] [phone] Motor NCS Nerve / Sites Muscle Latency Amplitude Distance Velocity ms mV cm m/s R Median - APB Wrist APB 4.56 11.0 7 Elbow APB 8.96 9.5 23 52.3 R Ulnar - ADM Wrist ADM 2.98 9.6 6.5 B.Elbow ADM 6.79 9.5 21.5 56.4 A.Elbow ADM 9.04 9.2 11.5 51.1 Sensory NCS Nerve / Sites Peak Amp Amp.2-3 Distance Velocity ms V V cm m/s R Median - Digit II Wrist 4.58 11.5 33.4 13 36 R Ulnar - Digit V Wrist 2.85 15.7 44.6 11 51 R Radial - Snuff Forearm 2.15 26.3 26.4 10 60 EMG Summary Table Spontaneous Activity Amplitude Duration Recruitment Polyphasia Comment Muscle Ins Act Fib PSW Fasc - - - - - R. Deltoid Normal 0 0 0 Normal Normal Normal Normal Normal R. Triceps brachii Normal 0 0 0 Normal Normal Normal Normal Normal R. Biceps brachii Normal 0 0 0 Normal Normal Normal Normal Normal R. Pronator teres Normal 0 0 0 Normal Normal Normal Normal Normal R. Extensor digitorum communis Normal 0 0 0 Normal Normal Normal Normal Normal R. First dorsal interosseous Normal 0 0 0 Normal Normal Normal Normal Normal R. Abductor pollicis brevis Normal 0 0 0 Normal Normal Normal Normal Normal AUTHENTICATED BY MICHELLE OLIVERA, ON 01/23/2024 13:42:14 ALLERGIES DATE TYPE / CODE NAME / CODE REACTION SEVERITY SOURCE Miscellaneous Allergy/[id number](SNOME D CT) NO KNOWN ALLERGIES [facility] ENCOUNTERS ADMIT/DISCHARGE ACCOUNT NUMBER ADMITTING ENCOUNTER CLASS LOCATION SOURCE 01/23/2024/01/23/20 [id number] AMBAR ALFARO Ambulatory Building:[facility] 12/14/2023 [id number] Ambulatory Building:[facility] PAYERS ENCOUNTER GUARANTOR PAYER SUBSCRIBER SOURCE 01/23/2024 SONNY ALEGRE: [id number] [address] [address]Hla: (HP) Primary Insurance:VAPolicy Number: [id number] Date:[address], [place] [address]CD: SONNY ALEGRE: [id number] [address] [address]Aeq: (HP) [facility] 12/14/2023 SONNY ALEGRE: [id number] [address] [address]Gsd: ~[phone] (HP) Primary Insurance:VAPolicy Number: Effective Date:[address], [place] [address]KU: SONNY ALEGRE: [id number] [address] [address]Qwe: (HP) [facility] 12/14/2023 Secondary Insurance:CONTRACT ALTERNATIVE PAYORPolicy Number: [id number] Date:2023-05-22 - 2023-05-22 OSNNY ALEGRE: [id number] [address] [address]Hej: (HP) [facility]
--- OUTSIDE RECORDS SUMMARY | 2024-01-23 14:25 | XMS RPT_ITS ---
Author Name Auto Generated Organization [facility] Care Team Providers Care Systems Integration Analyst Name Role Phone NO, PHYSICIAN Primary Care Unavailable AMBAR ALFARO Referring Unavailable AMBAR ALFARO Admitting Unavailable MICHELLE OLIVERA Attending Unavailable MICHELLE OLIVERA Attending Unavailable NO, PHYSICIAN Primary Care Unavailable PROBLEMS No Problem Records Found PROCEDURES No Procedure Records Found RESULTS PROGRESS Observed: 01/23/2024 1:31 PM Status: COMPLETED Source: [facility] - Neurology [facility] Surendra Cade [facility] [address] [place] [address] Nerve Conduction & EMG Report Patient: Sonny [...] Neurophysiology, Neurology, Vascular Neurology and Sleep Medicine [place] [phone] Motor NCS Nerve / Sites Muscle Latency [...] NAME / CODE REACTION SEVERITY SOURCE Miscellaneous Allergy/[id number](SNOME D CT) NO KNOWN ALLERGIES [facility] ENCOUNTERS ADMIT/DISCHARGE ACCOUNT NUMBER ADMITTING ENCOUNTER CLASS LOCATION SOURCE 01/23/2024/01/23/20 [id number] AMBAR ALFARO Ambulatory Building:[facility] 12/14/2023 [id number] Ambulatory Building:[facility] PAYERS ENCOUNTER GUARANTOR PAYER SUBSCRIBER SOURCE 01/23/2024 SONNY ALEGRE: [id number] [address] [address]Tey: (HP) Primary Insurance:VAPolicy Number: [id number] Date:[address], [place] [address]VR: SONNY ALEGRE: [id number] [address] [address]Zkz: (HP) [facility] 12/14/2023 SONNY ALEGRE: [id number] [address] [address]Ydy: ~[phone] (HP) Primary Insurance:VAPolicy Number: Effective Date:[address], [place] [address]LB: SONNY ALEGRE: [id number] [address] [address]Kni: (HP) [facility] 12/14/2023 Secondary Insurance:CONTRACT ALTERNATIVE PAYORPolicy Number: [id number] Date:2023-05-22 - 2023-05-22 SONNY ALEGRE: [id number] [address] [address]Ebw: (HP) [facility]
--- NOTE | 2024-12-03 11:55 | BI_ITS ---
EXAM: SCRN MAMM (CAD)W/DINH BILAT DATE: 12/03/2024 CLINICAL HISTORY: F, Age 59 y/o , SCREENING Routine screening TECHNIQUE: Procedure Code: [id number] Modality: MG Procedure: SCRN MAMM (CAD)W/DINH BILAT COMPARISON: Prior exam(s) dated none. FINDINGS: TISSUE DENSITY: The breasts are heterogeneously dense, which may obscure small masses. Bilateral Breast Mammographic Findings: No significant masses, calcifications or other abnormalities are identified. Benign lucent centered calcifications. BI/SCRN MAMM (CAD)W/DINH BILAT IMPRESSION: Negative screening mammogram, no suspicious findings OVERALL FINAL ASSESSMENT BI-RADS 2: BENIGN RECOMMENDATION: Routine annual follow-up in 1 Year Additional Recommendation none A letter with findings and recommendations will be mailed to the patient. Reading Location: [id number]
--- NOTE | 2024-12-03 11:55 | BI_ITS ---
EXAM: SCRN MAMM (CAD)W/DINH BILAT DATE: 12/03/2024 CLINICAL HISTORY: F, Age 59 y/o , SCREENING Routine screening TECHNIQUE: Procedure Code: [id number] Modality: MG Procedure: SCRN MAMM (CAD)W/DINH BILAT COMPARISON: Prior exam(s) dated none. FINDINGS: TISSUE DENSITY: The breasts are heterogeneously dense, which may obscure small masses. Bilateral Breast Mammographic Findings: No significant masses, calcifications or other abnormalities are identified. Benign lucent centered calcifications. BI/SCRN MAMM (CAD)W/DINH BILAT IMPRESSION: Negative screening mammogram, no suspicious findings OVERALL FINAL ASSESSMENT BI-RADS 2: BENIGN RECOMMENDATION: Routine annual follow-up in 1 Year Additional Recommendation none A letter with findings and recommendations will be mailed to the patient. Reading Location: [id number]
== END | disposition home or self-care (01) ==
LOC: OPBI 11:54
PROVIDERS: PCP Nurse Practitioner Gerontology; Referring Provider Nurse Practitioner Gerontology; Visit Provider Nurse Practitioner Gerontology
DX: Z12.31 Encounter for screening mammogram for malignant neoplasm of breast (principal)
CPT/HCPCS: 77063; 77067